=== PATIENT | male | born 1975 | race Caucasian/White ===

== ENCOUNTER 2017-09-11 18:05 | Inpatient (IN) | payer MEDICARE, MEDICAID ==
[~2017-09-11] VITALS: Ht 185.4 cm; Wt 96.3 kg
[2017-09-11] MEDS ORDERED: QUET400T PO (18:35)
[2017-09-11] MEDS ORDERED: LISI-662 PO (18:36)
[2017-09-11] MEDS ORDERED: OLAN10TA3 PO (18:37)
[2017-09-11] MEDS ORDERED: QUET300T2 PO (18:39)
[2017-09-11 18:54] LABS: BASOPHILS % (AUTO) 0.6 % (0.0-2.0); EOSINOPHILS % (AUTO) 2.4 % (1.0-6.0); HEMATOCRIT 36.8 % (41-53); HEMOGLOBIN 12.7 g/dL (13.5-17.5); LYMPHOCYTES # (AUTO) 2.1 K/uL (1.0-4.8); LYMPHOCYTES % (AUTO) 33.1 % (22.0-44.0); MEAN CORPUSCULAR HEMOGLOBIN 30.8 pg (26.0-34.0); MEAN CORPUSCULAR HGB CONC 34.5 G/dL (31.0-37.0); MEAN CORPUSCULAR VOLUME 89 fL (80-100); MONOCYTES # (AUTO) 0.6 K/uL (0.1-1.0); MONOCYTES % (AUTO) 9.2 % (2.0-9.0); NEUTROPHILS # (AUTO) 3.5 K/uL (1.8-7.7); NEUTROPHILS % (AUTO) 54.7 % (40.0-70.0); PLATELET COUNT (AUTO) 281 K/uL (150-450); RED BLOOD CELL COUNT(AUTO) 4.12 MIL/uL (4.50-5.90); RED CELL DISTRIBUTION WIDTH 13.5 % (11.5-14.5)
[2017-09-11 19:04] LABS: AMPHET/METH SCREEN,URINE NEGATIVE (NEGATIVE); BARBITURATE SCREEN, URINE NEGATIVE (NEGATIVE); BENZODIAZEPINES SCREEN,URINE NEGATIVE (NEGATIVE); CANNABINOID SCREEN,URINE POSITIVE (NEGATIVE); COCAINE SCREEN,URINE NEGATIVE (NEGATIVE); METHADONE SCREEN, URINE NEGATIVE (NEGATIVE); OPIATE SCREEN,URINE NEGATIVE (NEGATIVE); PHENCYCLIDINE SCREEN,URINE NEGATIVE (NEGATIVE)
[2017-09-11 19:04] LABS: ANION GAP 10 mmol/L (8-16); CALCIUM, TOTAL 8.9 mg/dL (8.8-10.5); CARBON DIOXIDE 28 mmol/L (22-29); CHLORIDE 108 mmol/L (98-107); CREATININE 0.93 mg/dL (0.60-1.30); GLOMERULAR FILTR. RATE CALC > 60 mL/min (>60); GLUCOSE,RANDOM 109 mg/dL (70-110); POTASSIUM 3.3 mmol/L (3.5-5.1); SODIUM SERUM 146 mmol/L (136-145); UREA NITROGEN, BLOOD 15 mg/dL (7-18)
[2017-09-11 19:11] LABS: ALANINE AMINOTRANSFERASE 40 U/L (12-78); ALBUMIN 3.3 g/dL (3.4-5.0); ALKALINE PHOSPHATASE 108 U/L (46-116); ASPARTATE AMINOTRANSFERASE 33 U/L (15-37); BILIRUBIN,TOTAL 0.3 mg/dL (0.1-1.0); TOTAL PROTEIN, SERUM 6.9 g/dL (6.4-8.2)
[2017-09-11] MEDS ORDERED: QUEtiapine FUMARATE 100 MG TABLET PO ONE (20:45)
[2017-09-11] MEDS ORDERED: LORazepam 2 MG TABLET PO ONE (20:45)
[2017-09-11] MEDS ORDERED: LORazepam 2 MG TABLET PO PRN (21:00)
[2017-09-11] MEDS ORDERED: QUEtiapine FUMARATE 100 MG TABLET PO PRN (21:00)
[2017-09-11] MEDS ORDERED: ZOLPIDEM TARTRATE 10 MG TABLET PO PRN (21:00)
[2017-09-11 21:38] LABS: APPEARANCE,URINE CLOUDY (CLEAR); BILIRUBIN,URINE NEGATIVE (NEGATIVE); GLUCOSE, URINE (UA) NEGATIVE (NEGATIVE); KETONES,URINE NEGATIVE (NEGATIVE); LEUKOCYTE ESTERASE ,URINE NEGATIVE (NEGATIVE); NITRATE,URINE NEGATIVE (NEGATIVE); OCCULT BLOOD,URINE NEGATIVE (NEGATIVE); PH,URINE 7.5 (5.0-8.0); PROTEIN,URINE NEGATIVE (NEGATIVE)
[2017-09-11 21:45] VITALS: BP 151/104
[2017-09-11 21:48] LABS: AMORPHOUS SEDIMENT,UR Many /LPF (None Seen); BACTERIA,URINE Few /HPF (None Seen); RBC,URINE 0-2 /HPF (0-2); SQUAMOUS EPITHELIAL CELL,UR Rare /LPF (None Seen); WBC,URINE 0-2 /HPF (0-5)
[2017-09-11 21:50] LABS: CALCIUM OXALATE CRYSTALS,UR Rare /LPF (None Seen)
[2017-09-11] MEDS ORDERED: CloNIDine HCL 0.1 MG TABLET PO PRN (22:45)
[2017-09-11] MEDS ORDERED: POTASSIUM CHLORIDE 20 MEQ ER TABLET PO ONE (22:45)
[2017-09-12] MEDS ORDERED: PNEUMOCOCCAL VACCINE POLYVALENT 0.5 ML VIAL [PPSV23] IM ONE (00:15)
[2017-09-12] MEDS ORDERED: INFLUENZA VIRUS VACCINE QVS 2017-18 (3YR+)/PF 60 MCG/0.5 ML SYRINGE IM ONE (00:15)
[2017-09-12 05:47] VITALS: BP 134/93
[2017-09-12 08:33] VITALS: BP 111/60
[2017-09-12] MEDS: LISINOPRIL 20 MG TABLET PO SCH (09:10)
[2017-09-12] MEDS: BACITRACIN 28.4 GM OINTMENT TP SCH ×2 (09:10→16:20)
[2017-09-12] MEDS: NICOTINE 21 MG/24 HOUR PATCH TD SCH (09:10)
[2017-09-12] MEDS: FLUoxetine HCL 20 MG CAPSULE PO SCH (10:25)
[2017-09-12 19:10] VITALS: BP 118/68
[2017-09-13 00:32] VITALS: BP 138/79
[2017-09-13 08:32] VITALS: BP 119/65
[2017-09-13] MEDS: FLUoxetine HCL 20 MG CAPSULE PO SCH (08:43)
[2017-09-13] MEDS: LISINOPRIL 20 MG TABLET PO SCH (08:43)
[2017-09-13] MEDS: NICOTINE 21 MG/24 HOUR PATCH TD SCH (08:44)
[2017-09-13] MEDS: BACITRACIN 28.4 GM OINTMENT TP SCH ×2 (08:47→16:37)
[2017-09-13 16:13] VITALS: BP 118/69
[2017-09-13] MEDS: QUEtiapine FUMARATE 100 MG TABLET PO SCH (18:57)
[2017-09-14 00:47] VITALS: BP 110/68
[2017-09-14 08:04] LABS: ANION GAP 10 mmol/L (8-16); CALCIUM, TOTAL 8.9 mg/dL (8.8-10.5); CARBON DIOXIDE 25 mmol/L (22-29); CHLORIDE 103 mmol/L (98-107); CREATININE 0.86 mg/dL (0.60-1.30); GLOMERULAR FILTR. RATE CALC > 60 mL/min (>60); GLUCOSE,RANDOM 84 mg/dL (70-110); POTASSIUM 3.9 mmol/L (3.5-5.1); SODIUM SERUM 138 mmol/L (136-145); UREA NITROGEN, BLOOD 25 mg/dL (7-18)
[2017-09-14 08:40] VITALS: BP 109/69
[2017-09-14 08:45] VITALS: BP 116/81
[2017-09-14] MEDS: FLUoxetine HCL 20 MG CAPSULE PO SCH (08:45)
[2017-09-14] MEDS: QUEtiapine FUMARATE 100 MG TABLET PO SCH ×2 (08:45→16:42)
[2017-09-14] MEDS: NICOTINE 21 MG/24 HOUR PATCH TD SCH (08:45)
[2017-09-14] MEDS: LISINOPRIL 20 MG TABLET PO SCH (08:45)
[2017-09-14] MEDS: BACITRACIN 28.4 GM OINTMENT TP SCH ×2 (08:46→16:42)
[2017-09-14] MEDS: BuPROPion HCL 100 MG SR TABLET PO SCH (09:33)
[2017-09-14 16:14] VITALS: BP 112/64
[2017-09-15 00:57] VITALS: BP 100/77
[2017-09-15] MEDS ORDERED: LOPERAMIDE HCL 2 MG CAPSULE PO PRN (02:45)
[2017-09-15 08:51] VITALS: BP 105/75
[2017-09-15 09:00] VITALS: BP 118/74
[2017-09-15] MEDS: QUEtiapine FUMARATE 100 MG TABLET PO SCH ×2 (09:00→16:13)
[2017-09-15] MEDS: LISINOPRIL 20 MG TABLET PO SCH (09:00)
[2017-09-15] MEDS: FLUoxetine HCL 20 MG CAPSULE PO SCH (09:00)
[2017-09-15] MEDS: NICOTINE 21 MG/24 HOUR PATCH TD SCH (09:01)
[2017-09-15] MEDS: BACITRACIN 28.4 GM OINTMENT TP SCH ×2 (09:01→16:15)
[2017-09-15] MEDS: BuPROPion HCL 100 MG SR TABLET PO SCH (09:01)
[2017-09-15] MEDS ORDERED: ONDANSETRON HCL 4 MG TABLET PO PRN (09:15)
[2017-09-15 16:34] VITALS: BP 107/67
[2017-09-16 06:07] VITALS: BP 103/63
[2017-09-16 08:11] LABS: BASOPHILS % (AUTO) 0.3 % (0.0-2.0); EOSINOPHILS % (AUTO) 1.9 % (1.0-6.0); HEMATOCRIT 40.4 % (41-53); HEMOGLOBIN 13.9 g/dL (13.5-17.5); LYMPHOCYTES # (AUTO) 2.6 K/uL (1.0-4.8); LYMPHOCYTES % (AUTO) 32.4 % (22.0-44.0); MEAN CORPUSCULAR HGB CONC 34.4 G/dL (31.0-37.0); MEAN CORPUSCULAR VOLUME 90 fL (80-100); MONOCYTES # (AUTO) 0.7 K/uL (0.1-1.0); MONOCYTES % (AUTO) 8.6 % (2.0-9.0); NEUTROPHILS # (AUTO) 4.5 K/uL (1.8-7.7); NEUTROPHILS % (AUTO) 56.8 % (40.0-70.0); PLATELET COUNT (AUTO) 328 K/uL (150-450); RED BLOOD CELL COUNT(AUTO) 4.48 MIL/uL (4.50-5.90); RED CELL DISTRIBUTION WIDTH 13.9 % (11.5-14.5)
[2017-09-16] MEDS: BuPROPion HCL 100 MG SR TABLET PO SCH (08:24)
[2017-09-16] MEDS: LISINOPRIL 20 MG TABLET PO SCH (08:25)
[2017-09-16] MEDS: FLUoxetine HCL 20 MG CAPSULE PO SCH (08:25)
[2017-09-16] MEDS: NICOTINE 21 MG/24 HOUR PATCH TD SCH (08:25)
[2017-09-16] MEDS: QUEtiapine FUMARATE 100 MG TABLET PO SCH ×2 (08:25→16:11)
[2017-09-16] MEDS: BACITRACIN 28.4 GM OINTMENT TP SCH ×2 (08:27→16:11)
[2017-09-16 08:28] VITALS: BP 110/60
[2017-09-16 08:39] LABS: ALANINE AMINOTRANSFERASE 29 U/L (12-78); ALBUMIN 3.4 g/dL (3.4-5.0); ALKALINE PHOSPHATASE 104 U/L (46-116); ANION GAP 7 mmol/L (8-16); ASPARTATE AMINOTRANSFERASE 14 U/L (15-37); BILIRUBIN,TOTAL 0.3 mg/dL (0.1-1.0); CALCIUM, TOTAL 8.8 mg/dL (8.8-10.5); CARBON DIOXIDE 28 mmol/L (22-29); CHLORIDE 106 mmol/L (98-107); CREATININE 0.89 mg/dL (0.60-1.30); GLOMERULAR FILTR. RATE CALC > 60 mL/min (>60); GLUCOSE,RANDOM 89 mg/dL (70-110); SODIUM SERUM 141 mmol/L (136-145); TOTAL PROTEIN, SERUM 7.2 g/dL (6.4-8.2); UREA NITROGEN, BLOOD 33 mg/dL (7-18)
[2017-09-16 17:06] VITALS: BP 120/65
[2017-09-17 06:13] VITALS: BP 117/82
[2017-09-17 08:21] VITALS: BP 119/78
[2017-09-17] MEDS: NICOTINE 21 MG/24 HOUR PATCH TD SCH (08:30)
[2017-09-17] MEDS: LISINOPRIL 20 MG TABLET PO SCH (08:30)
[2017-09-17] MEDS: BuPROPion HCL 100 MG SR TABLET PO SCH (08:31)
[2017-09-17] MEDS: QUEtiapine FUMARATE 100 MG TABLET PO SCH ×2 (08:31→16:20)
[2017-09-17] MEDS: FLUoxetine HCL 20 MG CAPSULE PO SCH (08:31)
[2017-09-17] MEDS: BACITRACIN 28.4 GM OINTMENT TP SCH ×2 (08:34→16:20)
[2017-09-17 16:10] VITALS: BP 117/71
[2017-09-18] VITALS: BP 117/61
[2017-09-18 08:38] VITALS: BP 123/73
[2017-09-18] MEDS: FLUoxetine HCL 20 MG CAPSULE PO SCH (09:39)
[2017-09-18] MEDS: BuPROPion HCL 100 MG SR TABLET PO SCH (09:39)
[2017-09-18] MEDS: LISINOPRIL 20 MG TABLET PO SCH (09:39)
[2017-09-18] MEDS: QUEtiapine FUMARATE 100 MG TABLET PO SCH ×2 (09:40→17:10)
[2017-09-18] MEDS: NICOTINE 21 MG/24 HOUR PATCH TD SCH (09:41)
[2017-09-18] MEDS: BACITRACIN 28.4 GM OINTMENT TP SCH ×2 (09:42→17:11)
[2017-09-18 16:22] VITALS: BP 122/77
[2017-09-19 00:10] VITALS: BP 110/62
[2017-09-19 08:36] VITALS: BP 121/60
[2017-09-19] MEDS: BuPROPion HCL 100 MG SR TABLET PO SCH (08:41)
[2017-09-19] MEDS: FLUoxetine HCL 20 MG CAPSULE PO SCH (08:41)
[2017-09-19] MEDS: QUEtiapine FUMARATE 100 MG TABLET PO SCH ×2 (08:41→16:11)
[2017-09-19] MEDS: NICOTINE 21 MG/24 HOUR PATCH TD SCH (08:41)
[2017-09-19] MEDS: LISINOPRIL 20 MG TABLET PO SCH (08:41)
[2017-09-19] MEDS: BACITRACIN 28.4 GM OINTMENT TP SCH ×2 (08:45→16:12)
[2017-09-19 16:10] VITALS: BP 106/66
[2017-09-20 01:25] VITALS: BP 102/61
[2017-09-20 08:00] VITALS: BP 118/76
[2017-09-20] MEDS: FLUoxetine HCL 20 MG CAPSULE PO SCH (08:24)
[2017-09-20] MEDS: LISINOPRIL 20 MG TABLET PO SCH (08:24)
[2017-09-20] MEDS: QUEtiapine FUMARATE 100 MG TABLET PO SCH (08:24)
[2017-09-20] MEDS: BuPROPion HCL 100 MG SR TABLET PO SCH (08:24)
[2017-09-20] MEDS: NICOTINE 21 MG/24 HOUR PATCH TD SCH (08:25)
[2017-09-20] MEDS: BACITRACIN 28.4 GM OINTMENT TP SCH ×2 (08:26→16:30)
[2017-09-20 16:24] VITALS: BP 119/60
[2017-09-20] MEDS: QUEtiapine FUMARATE 200 MG TABLET PO SCH (16:30)
[2017-09-21 02:34] VITALS: BP 102/65
[2017-09-21 08:00] VITALS: BP 123/71
[2017-09-21] MEDS: FLUoxetine HCL 20 MG CAPSULE PO SCH (09:32)
[2017-09-21] MEDS: LISINOPRIL 20 MG TABLET PO SCH (09:33)
[2017-09-21] MEDS: QUEtiapine FUMARATE 200 MG TABLET PO SCH ×2 (09:33→16:21)
[2017-09-21] MEDS: BuPROPion HCL 100 MG SR TABLET PO SCH (09:38)
[2017-09-21] MEDS: NICOTINE 21 MG/24 HOUR PATCH TD SCH (09:38)
[2017-09-21] MEDS: BACITRACIN 28.4 GM OINTMENT TP SCH ×2 (09:40→16:21)
[2017-09-21] MEDS ORDERED: FLUO-191 PO (13:27)
[2017-09-21] MEDS ORDERED: BUPR100SR PO (13:28)
[2017-09-21 16:02] VITALS: BP 106/60
[2017-09-22 01:30] VITALS: BP 109/60
[2017-09-22] MEDS ORDERED: QUET200T PO (04:55)
[2017-09-22] MEDS ORDERED: FLUO40CA7 PO (05:43)
[2017-09-22] MEDS ORDERED: BUPR100SR PO (05:43)
[2017-09-22] MEDS ORDERED: QUET200T29 PO (05:43)
[2017-09-22 08:20] VITALS: BP 124/71
[2017-09-22 08:21] VITALS: BP 109/64
[2017-09-22] MEDS: QUEtiapine FUMARATE 200 MG TABLET PO SCH (08:24)
[2017-09-22] MEDS: FLUoxetine HCL 20 MG CAPSULE PO SCH (08:24)
[2017-09-22] MEDS: BuPROPion HCL 100 MG SR TABLET PO SCH (08:24)
[2017-09-22] MEDS: LISINOPRIL 20 MG TABLET PO SCH (08:24)
[2017-09-22] MEDS: NICOTINE 21 MG/24 HOUR PATCH TD SCH (08:25)
[2017-09-22] MEDS: BACITRACIN 28.4 GM OINTMENT TP SCH (08:25)
== END 2017-09-22 11:28 | disposition home or self-care (01) | DRG 885 ==
LOC: EMS 18:06 → B2S 21:00 → B2X 09-12 18:43
PROVIDERS: ADMIT Psychiatry & Neurology Child & Adolescent Psychiatry; ATTEND Psychiatry & Neurology Child & Adolescent Psychiatry
DX: F33.3 Major depressive disorder, recurrent, severe with psychotic symptoms (principal); R45.851 Suicidal ideations; D64.9 Anemia, unspecified; E87.6 Hypokalemia; F12.90 Cannabis use, unspecified, uncomplicated; F17.210 Nicotine dependence, cigarettes, uncomplicated; Z28.21 Immunization not carried out because of patient refusal; Z88.8 Allergy status to other drugs, medicaments and biological substances; Z59.0 Homelessness; I10 Essential (primary) hypertension; F15.90 Other stimulant use, unspecified, uncomplicated; F41.9 Anxiety disorder, unspecified; W45.8XXA Other foreign body or object entering through skin, initial encounter; Y93.89 Activity, other specified; Y92.89 Other specified places as the place of occurrence of the external cause; Y99.8 Other external cause status
CPT/HCPCS: 99285; G0480

== ENCOUNTER 2018-01-06 10:05 | Inpatient (IN) | payer MEDICARE, MEDICAID ==
[~2018-01-06] VITALS: Ht 185.4 cm; Wt 107.0 kg
[~2018-01-06 10:05] MED LIST: BUPR100SR PO; FLUO-191 PO; FLUO40CA7 PO; LISI-662 PO; QUET200T PO; QUET200T29 PO
[2018-01-06 11:27] LABS: BASOPHILS % (AUTO) 0.2 % (0.0-2.0); EOSINOPHILS % (AUTO) 0.3 % (1.0-6.0); HEMATOCRIT 41.1 % (41-53); LYMPHOCYTES # (AUTO) 4.3 K/uL (1.0-4.8); LYMPHOCYTES % (AUTO) 25.3 % (22.0-44.0); MEAN CORPUSCULAR HEMOGLOBIN 30.4 pg (26.0-34.0); MEAN CORPUSCULAR VOLUME 89 fL (80-100); MONOCYTES # (AUTO) 1.4 K/uL (0.1-1.0); MONOCYTES % (AUTO) 8.5 % (2.0-9.0); NEUTROPHILS # (AUTO) 11.2 K/uL (1.8-7.7); NEUTROPHILS % (AUTO) 65.7 % (40.0-70.0); PLATELET COUNT (AUTO) 455 K/uL (150-450); RED BLOOD CELL COUNT(AUTO) 4.61 MIL/uL (4.50-5.90); RED CELL DISTRIBUTION WIDTH 14.7 % (11.5-14.5)
[2018-01-06 11:36] LABS: ALBUMIN 4.5 g/dL (3.4-5.0); BILIRUBIN,TOTAL 0.4 mg/dL (0.1-1.0); CALCIUM, TOTAL 9.2 mg/dL (8.8-10.5); CREATININE 1.7 mg/dL (0.60-1.30); POTASSIUM 4.2 mmol/L (3.5-5.1); TOTAL PROTEIN, SERUM 8.3 g/dL (6.4-8.2)
[2018-01-06] MEDS ORDERED: LIDOCAINE HCL 1% 10 ML VIAL INJ ONE (11:45)
[2018-01-06] MEDS ORDERED: LIDOCAINE HCL/PF 1% 5 ML VIAL ONE (11:55)
[2018-01-06] MEDS ORDERED: DiphenhydrAMINE HCL 25 MG CAPSULE PO ONE (12:30)
[2018-01-06] MEDS ORDERED: LORazepam 2 MG/ML VIAL IM ONE (12:30)
[2018-01-06] MEDS ORDERED: LORazepam 2 MG TABLET PO ONE (12:30)
[2018-01-06] MEDS ORDERED: DiphenhydrAMINE HCL 50 MG/ML VIAL IM ONE (12:30)
[2018-01-06] MEDS ORDERED: QUEtiapine FUMARATE 100 MG TABLET PO ONE (12:30)
[2018-01-06 12:53] LABS: AMPHET/METH SCREEN,URINE POSITIVE (NEGATIVE); BARBITURATE SCREEN, URINE NEGATIVE (NEGATIVE); BENZODIAZEPINES SCREEN,URINE NEGATIVE (NEGATIVE); CANNABINOID SCREEN,URINE NEGATIVE (NEGATIVE); COCAINE SCREEN,URINE NEGATIVE (NEGATIVE); METHADONE SCREEN, URINE NEGATIVE (NEGATIVE); OPIATE SCREEN,URINE NEGATIVE (NEGATIVE)
[2018-01-06 12:57] LABS: PHENCYCLIDINE SCREEN,URINE NEGATIVE (NEGATIVE)
[2018-01-06] MEDS ORDERED: OLANZapine 5 MG RAPDIS TABLET PO PRN (14:00)
[2018-01-06] MEDS ORDERED: ZOLPIDEM TARTRATE 10 MG TABLET PO PRN (14:00)
[2018-01-06] MEDS ORDERED: HYDROCODONE/ACETAMINOPHEN 5-325 MG TABLET PO ONE (20:15)
[2018-01-07] VITALS (9 sets, daily range): BP systolic 106–157; BP diastolic 60–95
[2018-01-07 05:43] LABS: CHOL/HDL RATIO 6.6 (4.2-7.3); CHOLESTEROL 205 mg/dL (131-200); HDL CHOLESTEROL 31 mg/dL (40-60); TRIGLYCERIDES 409 mg/dL (15-150)
[2018-01-07] MEDS ORDERED: LORazepam 2 MG TABLET PO PRN (10:45)
[2018-01-07] MEDS ORDERED: ACETAMINOPHEN 325 MG TABLET PO PRN (11:15)
[2018-01-07] MEDS ORDERED: ONDANSETRON HCL 4 MG TABLET PO PRN (11:15)
[2018-01-07] MEDS ORDERED: IBUPROFEN 400 MG TABLET PO PRN (11:15)
[2018-01-07] MEDS ORDERED: PETROLATUM,WHITE 71 GM JELLY TP PRN (11:15)
[2018-01-07] MEDS ORDERED: MAGNESIUM HYDROXIDE SUSPENSION 30 ML UDCUP PO PRN (11:15)
[2018-01-07] MEDS ORDERED: LOPERAMIDE HCL 2 MG CAPSULE PO PRN (11:15)
[2018-01-07] MEDS ORDERED: ALBUTEROL SULFATE HFA 90 MCG/PUFF 8 GM INHALER IH PRN (11:15)
[2018-01-07] MEDS ORDERED: DOCUSATE SODIUM 100 MG CAPSULE PO PRN (11:15)
[2018-01-07] MEDS ORDERED: CloNIDine HCL 0.1 MG TABLET PO PRN (11:15)
[2018-01-07] MEDS ORDERED: MAG HYDROX/AL HYDROX/SIMETH ES 30 ML SUSPENSION UDCUP PO PRN (11:15)
[2018-01-07] MEDS ORDERED: PNEUMOCOCCAL VACCINE POLYVALENT 0.5 ML VIAL [PPSV23] IM ONE (11:45)
[2018-01-07] MEDS: LORazepam 2 MG TABLET PO PRN ×2 (13:08→18:00)
[2018-01-07] MEDS: QUEtiapine FUMARATE 200 MG TABLET PO SCH (16:36)
[2018-01-07] MEDS: SIMVASTATIN 10 MG TABLET PO SCH (20:33)
[2018-01-08 01:02] VITALS: BP 110/65
[2018-01-08] MEDS: LORazepam 2 MG TABLET PO PRN (01:11)
[2018-01-08 05:00] VITALS: BP 133/88
[2018-01-08] MEDS ORDERED: LORazepam 2 MG TABLET PO PRN (07:00)
[2018-01-08 08:15] VITALS: BP 110/68
[2018-01-08] MEDS: AmLODIPine BESYLATE 5 MG TABLET PO SCH (08:17)
[2018-01-08] MEDS: LORazepam 2 MG TABLET PO SCH ×4 (08:17→20:50)
[2018-01-08] MEDS: BuPROPion HCL XL 150 MG ER TABLET PO SCH (08:17)
[2018-01-08] MEDS: FLUoxetine HCL 20 MG CAPSULE PO SCH (08:17)
[2018-01-08] MEDS: QUEtiapine FUMARATE 200 MG TABLET PO SCH ×2 (08:17→16:36)
[2018-01-08] MEDS: BACITRACIN 28.4 GM OINTMENT TP SCH ×2 (08:18→16:36)
[2018-01-08 08:25] LABS: HEMOGLOBIN A1C 5.1 % (4.5-6.2)
[2018-01-08 08:49] LABS: CHOL/HDL RATIO 6.9 (4.2-7.3); THYROID STIMULATING HORMONE 1.78 uIU/mL (0.36-3.74)
[2018-01-08 09:00] VITALS: BP 118/65
[2018-01-08 13:00] VITALS: BP 110/66
[2018-01-08 16:03] VITALS: BP 138/62
[2018-01-08] MEDS: SIMVASTATIN 10 MG TABLET PO SCH (20:49)
[2018-01-09 03:08] VITALS: BP 125/68
[2018-01-09 03:10] VITALS: BP 125/68
[2018-01-09 08:22] LABS: APPEARANCE,URINE CLEAR (CLEAR); BILIRUBIN,URINE NEGATIVE (NEGATIVE); GLUCOSE, URINE (UA) NEGATIVE (NEGATIVE); KETONES,URINE NEGATIVE (NEGATIVE); LEUKOCYTE ESTERASE ,URINE NEGATIVE (NEGATIVE); NITRATE,URINE NEGATIVE (NEGATIVE); OCCULT BLOOD,URINE NEGATIVE (NEGATIVE); PH,URINE 5.5 (5.0-8.0); PROTEIN,URINE NEGATIVE (NEGATIVE); UROBILINOGEN,URINE 0.2 mg/dL (<=1.0)
[2018-01-09 08:27] LABS: AMPHET/METH SCREEN,URINE NEGATIVE (NEGATIVE); BARBITURATE SCREEN, URINE NEGATIVE (NEGATIVE); BENZODIAZEPINES SCREEN,URINE NEGATIVE (NEGATIVE); CANNABINOID SCREEN,URINE NEGATIVE (NEGATIVE); COCAINE SCREEN,URINE NEGATIVE (NEGATIVE); METHADONE SCREEN, URINE NEGATIVE (NEGATIVE); OPIATE SCREEN,URINE NEGATIVE (NEGATIVE)
[2018-01-09 08:29] LABS: PHENCYCLIDINE SCREEN,URINE NEGATIVE (NEGATIVE)
[2018-01-09 08:36] VITALS: BP 111/60
[2018-01-09] MEDS: LORazepam 2 MG TABLET PO SCH ×4 (08:54→20:34)
[2018-01-09] MEDS: QUEtiapine FUMARATE 200 MG TABLET PO SCH ×2 (08:54→16:36)
[2018-01-09] MEDS: BuPROPion HCL XL 150 MG ER TABLET PO SCH (08:54)
[2018-01-09] MEDS: FLUoxetine HCL 20 MG CAPSULE PO SCH (08:54)
[2018-01-09] MEDS: AmLODIPine BESYLATE 5 MG TABLET PO SCH (08:54)
[2018-01-09] MEDS: BACITRACIN 28.4 GM OINTMENT TP SCH ×2 (08:56→16:36)
[2018-01-09 12:00] VITALS: BP 105/63
[2018-01-09 16:10] VITALS: BP 113/65
[2018-01-09] MEDS: SIMVASTATIN 20 MG TABLET PO SCH (20:34)
[2018-01-10 05:20] VITALS: BP 136/86
[2018-01-10] MEDS ORDERED: LORazepam 1 MG TABLET PO PRN (07:00)
[2018-01-10 08:00] VITALS: BP 136/78
[2018-01-10 08:18] VITALS: BP 136/78
[2018-01-10] MEDS: AmLODIPine BESYLATE 5 MG TABLET PO SCH (08:36)
[2018-01-10] MEDS: BuPROPion HCL XL 150 MG ER TABLET PO SCH (08:36)
[2018-01-10] MEDS: LORazepam 1 MG TABLET PO SCH ×4 (08:36→20:09)
[2018-01-10] MEDS: QUEtiapine FUMARATE 200 MG TABLET PO SCH ×2 (08:36→16:28)
[2018-01-10] MEDS: FLUoxetine HCL 20 MG CAPSULE PO SCH (08:36)
[2018-01-10] MEDS: BACITRACIN 28.4 GM OINTMENT TP SCH ×2 (10:12→17:18)
[2018-01-10 16:18] VITALS: BP 138/72
[2018-01-10] MEDS: CEPHALEXIN MONOHYDRATE 500 MG CAPSULE PO SCH (16:28)
[2018-01-10] MEDS: SULFAMETHOX/TRIMETH DS 800-160 MG/TABLET PO SCH (16:28)
[2018-01-10 16:49] VITALS: BP 138/72
[2018-01-10] MEDS: SIMVASTATIN 20 MG TABLET PO SCH (20:09)
[2018-01-11] VITALS: BP 139/87
[2018-01-11] MEDS: CEPHALEXIN MONOHYDRATE 500 MG CAPSULE PO SCH ×3 (00:21→16:28)
[2018-01-11] MEDS ORDERED: LORazepam 1 MG TABLET PO PRN (07:00)
[2018-01-11 08:00] VITALS: BP 136/67
[2018-01-11] MEDS: SULFAMETHOX/TRIMETH DS 800-160 MG/TABLET PO SCH ×2 (08:30→16:28)
[2018-01-11] MEDS: AmLODIPine BESYLATE 5 MG TABLET PO SCH (08:30)
[2018-01-11] MEDS: QUEtiapine FUMARATE 200 MG TABLET PO SCH ×2 (08:30→16:28)
[2018-01-11] MEDS: BuPROPion HCL XL 150 MG ER TABLET PO SCH (08:30)
[2018-01-11] MEDS: FLUoxetine HCL 20 MG CAPSULE PO SCH (08:31)
[2018-01-11] MEDS: BACITRACIN 28.4 GM OINTMENT TP SCH ×2 (08:32→16:29)
[2018-01-11] MEDS: NICOTINE 14 MG/24 HOUR PATCH TD PRN (10:05)
[2018-01-11 16:09] VITALS: BP 122/68
[2018-01-11 16:10] VITALS: BP 122/68
[2018-01-11] MEDS: SIMVASTATIN 20 MG TABLET PO SCH (20:42)
[2018-01-12] MEDS: CEPHALEXIN MONOHYDRATE 500 MG CAPSULE PO SCH ×3 (00:06→16:30)
[2018-01-12 06:30] VITALS: BP 118/72
[2018-01-12 08:28] VITALS: BP 101/60
[2018-01-12] MEDS: BuPROPion HCL XL 150 MG ER TABLET PO SCH (08:35)
[2018-01-12] MEDS: QUEtiapine FUMARATE 200 MG TABLET PO SCH ×2 (08:35→16:31)
[2018-01-12] MEDS: AmLODIPine BESYLATE 5 MG TABLET PO SCH ×2 (08:35→08:53)
[2018-01-12] MEDS: SULFAMETHOX/TRIMETH DS 800-160 MG/TABLET PO SCH ×2 (08:36→16:31)
[2018-01-12] MEDS: FLUoxetine HCL 20 MG CAPSULE PO SCH (08:36)
[2018-01-12] MEDS: BACITRACIN 28.4 GM OINTMENT TP SCH ×2 (08:37→16:31)
[2018-01-12 08:57] LABS: BASOPHILS % (AUTO) 0.8 % (0.0-2.0); EOSINOPHILS % (AUTO) 3.7 % (1.0-6.0); HEMATOCRIT 40.1 % (41-53); HEMOGLOBIN 13.9 g/dL (13.5-17.5); LYMPHOCYTES # (AUTO) 2.6 K/uL (1.0-4.8); LYMPHOCYTES % (AUTO) 29.9 % (22.0-44.0); MEAN CORPUSCULAR HEMOGLOBIN 30.8 pg (26.0-34.0); MEAN CORPUSCULAR HGB CONC 34.7 G/dL (31.0-37.0); MEAN CORPUSCULAR VOLUME 89 fL (80-100); MONOCYTES # (AUTO) 0.7 K/uL (0.1-1.0); MONOCYTES % (AUTO) 8.4 % (2.0-9.0); NEUTROPHILS % (AUTO) 57.2 % (40.0-70.0); PLATELET COUNT (AUTO) 279 K/uL (150-450); RED BLOOD CELL COUNT(AUTO) 4.52 MIL/uL (4.50-5.90); RED CELL DISTRIBUTION WIDTH 14.7 % (11.5-14.5)
[2018-01-12 09:16] LABS: ANION GAP 8 mmol/L (8-16); CALCIUM, TOTAL 8.9 mg/dL (8.8-10.5); CARBON DIOXIDE 25 mmol/L (22-29); CHLORIDE 106 mmol/L (98-107); CREATININE 1.03 mg/dL (0.60-1.30); GLOMERULAR FILTR. RATE CALC > 60 mL/min (>60); GLUCOSE,RANDOM 83 mg/dL (70-110); POTASSIUM 3.9 mmol/L (3.5-5.1); SODIUM SERUM 139 mmol/L (136-145); UREA NITROGEN, BLOOD 25 mg/dL (7-18)
[2018-01-12 16:23] VITALS: BP 116/80
[2018-01-12] MEDS: BuPROPion HCL 150 MG SR TABLET PO SCH (16:30)
[2018-01-12] MEDS: SIMVASTATIN 20 MG TABLET PO SCH (20:39)
[2018-01-13] MEDS: CEPHALEXIN MONOHYDRATE 500 MG CAPSULE PO SCH ×2 (00:41→07:04)
[2018-01-13 06:36] VITALS: BP 90/60
[2018-01-13] MEDS: FLUoxetine HCL 20 MG CAPSULE PO SCH (08:11)
[2018-01-13] MEDS: BuPROPion HCL 150 MG SR TABLET PO SCH (08:12)
[2018-01-13] MEDS: AmLODIPine BESYLATE 5 MG TABLET PO SCH (08:12)
[2018-01-13] MEDS: SULFAMETHOX/TRIMETH DS 800-160 MG/TABLET PO SCH (08:12)
[2018-01-13] MEDS: QUEtiapine FUMARATE 200 MG TABLET PO SCH (08:12)
[2018-01-13] MEDS: BACITRACIN 28.4 GM OINTMENT TP SCH (08:17)
[2018-01-13] MEDS: NICOTINE 14 MG/24 HOUR PATCH TD PRN (08:17)
[2018-01-13 08:31] VITALS: BP 132/81
[2018-01-13] MEDS ORDERED: THIAMINE HCL 100 MG TABLET PO SCH (09:00)
[2018-01-13] MEDS ORDERED: OMEGA-3/DHA/EPA/FISH OIL 1,000 MG CAPSULE PO SCH (09:00)
[2018-01-13] MEDS ORDERED: FOLIC ACID 1 MG TABLET PO SCH (09:00)
[2018-01-13] MEDS ORDERED: MULTIVITAMINS WITH MINERALS, THERAPEUTIC TABLET PO SCH (09:00)
[2018-01-13] MEDS ORDERED: OMEG-135 PO (10:00)
[2018-01-13] MEDS ORDERED: SULF1TAB42 PO (10:00)
[2018-01-13] MEDS ORDERED: BUPR150SR PO (10:00)
[2018-01-13] MEDS ORDERED: SIMV-260 PO (10:00)
[2018-01-13] MEDS ORDERED: CEPH500 PO (10:00)
[2018-01-13] MEDS ORDERED: AMLO-511 PO (10:00)
== END 2018-01-13 13:35 | disposition home or self-care (01) | DRG 885 ==
LOC: EMS 10:06 → B2X 01-07 08:18
PROVIDERS: ADMIT Psychiatry & Neurology Psychiatry; ATTEND Psychiatry & Neurology Psychiatry
DX: F25.1 Schizoaffective disorder, depressive type (principal); F33.2 Major depressive disorder, recurrent severe without psychotic features; N17.9 Acute kidney failure, unspecified; N39.0 Urinary tract infection, site not specified; F17.200 Nicotine dependence, unspecified, uncomplicated; F15.10 Other stimulant abuse, uncomplicated; F12.90 Cannabis use, unspecified, uncomplicated; F10.20 Alcohol dependence, uncomplicated; D72.829 Elevated white blood cell count, unspecified; I12.9 Hypertensive chronic kidney disease with stage 1 through stage 4 chronic kidney disease, or unspecified chronic kidney disease; N18.9 Chronic kidney disease, unspecified; S61.419A Laceration without foreign body of unspecified hand, initial encounter; A49.01 Methicillin susceptible Staphylococcus aureus infection, unspecified site; R56.9 Unspecified convulsions; R45.87 Impulsiveness; Y28.1XXA Contact with knife, undetermined intent, initial encounter; S61.019A Laceration without foreign body of unspecified thumb without damage to nail, initial encounter; S71.119A Laceration without foreign body, unspecified thigh, initial encounter; Z59.0 Homelessness; Z79.899 Other long term (current) drug therapy; Z91.19 Patient's noncompliance with other medical treatment and regimen; Z91.5 Personal history of self-harm; Z91.83 Wandering in diseases classified elsewhere; Y93.89 Activity, other specified; Y92.89 Other specified places as the place of occurrence of the external cause; Y99.8 Other external cause status; Z71.6 Tobacco abuse counseling; Z71.51 Drug abuse counseling and surveillance of drug abuser
CPT/HCPCS: 12001; 80074; 80307; 83036; 84443; 87070; 87205; 96372; 99285; G0480; J1200; J2060; J3490

== ENCOUNTER 2021-03-18 17:32 | Inpatient (IN) | payer MEDICARE, MEDICAID ==
[~2021-03-18] VITALS: Ht 185.4 cm; Wt 110.7 kg
[~2021-03-18 17:32] MED LIST changes: +AMLO-257 PO; -BUPR100SR PO; +BUPR150SR PO; +CEPH500C3 PO; -FLUO-191 PO; -LISI-662 PO; +OMEG-135 PO; -QUET200T PO; -QUET200T29 PO; +QUET200T30 PO; +SIMV-260 PO; +SULF1TAB42 PO
[2021-03-18] MEDS ORDERED: FAMOTIDINE 20 MG TABLET PO ONE (21:15)
[2021-03-18] MEDS ORDERED: PB/HYOSCY/ATR/SCOP/LIDO/MAALOX 55 ML BOTTLE PO ONE (21:15)
[2021-03-18] MEDS ORDERED: DIAZEPAM 5 MG TABLET PO ONE (21:15)
[2021-03-18] MEDS ORDERED: PERTUSS(ACELL),DIPH,TET VAC/PF 0.5 ML SYRINGE IM. ONE (21:15)
[2021-03-18 21:36] LABS: EOSINOPHILS % (AUTO) 0.9 % (1.0-6.0); HEMATOCRIT 41.2 % (41-53); HEMOGLOBIN 14.2 g/dL (13.5-17.5); LYMPHOCYTES # (AUTO) 3.1 K/uL (1.0-4.8); MEAN CORPUSCULAR HEMOGLOBIN 30.4 pg (26.0-34.0); MEAN CORPUSCULAR HGB CONC 34.5 G/dL (31.0-37.0); MEAN CORPUSCULAR VOLUME 88 fL (80-100); MONOCYTES # (AUTO) 1.1 K/uL (0.1-1.0); MONOCYTES % (AUTO) 9.1 % (2.0-9.0); NEUTROPHILS # (AUTO) 7.6 K/uL (1.8-7.7); PLATELET COUNT (AUTO) 287 K/uL (150-450); RED BLOOD CELL COUNT(AUTO) 4.68 MIL/uL (4.50-5.90); RED CELL DISTRIBUTION WIDTH 13.8 % (11.5-14.5)
[2021-03-18 22:07] LABS: APPEARANCE,URINE CLEAR (CLEAR); BILIRUBIN,URINE NEGATIVE (NEGATIVE); GLUCOSE, URINE (UA) NEGATIVE (NEGATIVE); KETONES,URINE 40 mg/dL (NEGATIVE); LEUKOCYTE ESTERASE ,URINE NEGATIVE (NEGATIVE); NITRATE,URINE NEGATIVE (NEGATIVE); OCCULT BLOOD,URINE TRACE (NEGATIVE); PH,URINE 6.5 (5.0-8.0); PROTEIN,URINE NEGATIVE (NEGATIVE); UROBILINOGEN,URINE 0.2 mg/dL (<=1.0)
[2021-03-18 22:07] LABS: ANION GAP 14 mmol/L (8-16); CALCIUM, TOTAL 9.3 mg/dL (8.8-10.5); CARBON DIOXIDE 25 mmol/L (22-29); CHLORIDE 93 mmol/L (98-107); CREATININE 1.11 mg/dL (0.60-1.30); GLOMERULAR FILTR. RATE CALC > 60 mL/min (>60); GLUCOSE,RANDOM 111 mg/dL (70-110); POTASSIUM 3.5 mmol/L (3.5-5.1); SODIUM SERUM 132 mmol/L (136-145); UREA NITROGEN, BLOOD 27 mg/dL (7-18)
[2021-03-18 22:14] LABS: AMPHET/METH SCREEN,URINE POSITIVE (NEGATIVE); BARBITURATE SCREEN, URINE NEGATIVE (NEGATIVE); BENZODIAZEPINES SCREEN,URINE NEGATIVE (NEGATIVE); CANNABINOID SCREEN,URINE NEGATIVE (NEGATIVE); COCAINE SCREEN,URINE NEGATIVE (NEGATIVE); METHADONE SCREEN, URINE NEGATIVE (NEGATIVE); OPIATE SCREEN,URINE NEGATIVE (NEGATIVE)
[2021-03-18 22:15] LABS: ALANINE AMINOTRANSFERASE 213 U/L (12-78); ALBUMIN 3.8 g/dL (3.4-5.0); ALKALINE PHOSPHATASE 93 U/L (46-116); ASPARTATE AMINOTRANSFERASE 386 U/L (15-37); BILIRUBIN,TOTAL 1.2 mg/dL (0.1-1.0)
[2021-03-18 22:16] LABS: ACETAMINOPHEN < 2 mcg/mL (10-30)
[2021-03-18 22:17] LABS: COVID AG,FIA SOURCE NASOPHARYNGEAL
[2021-03-18 22:24] LABS: SALICYLATE < 2.8 mg/dL (2.8-20.0)
[2021-03-18 22:25] LABS: PHENCYCLIDINE SCREEN,URINE NEGATIVE (NEGATIVE)
[2021-03-18 22:42] LABS: RBC,URINE 0-2 /HPF (0-2); WBC,URINE 0-2 /HPF (0-5)
[2021-03-18 22:43] LABS: BACTERIA,URINE Rare /HPF (None Seen)
[2021-03-18] MEDS: ZOLPIDEM TARTRATE 10 MG TABLET PO PRN (23:45)
[2021-03-19 02:06] LABS: CHOL/HDL RATIO 6.6 (4.2-7.3); CHOLESTEROL 250 mg/dL (131-200); HDL CHOLESTEROL 38 mg/dL (40-60); TRIGLYCERIDES 509 mg/dL (15-150)
[2021-03-19 02:23] VITALS: BP 144/111
[2021-03-19] MEDS ORDERED: INFLUENZA VIRUS VACCINE QVS 2021-22 (6MO+)/PF 60 MCG/0.5 ML SYRINGE IM. ONE (04:30)
[2021-03-19 08:15] VITALS: BP 133/82
[2021-03-19] MEDS: LORazepam 2 MG TABLET PO PRN ×2 (12:18→17:59)
[2021-03-19] MEDS ORDERED: DOCUSATE SODIUM 100 MG CAPSULE PO PRN (14:15)
[2021-03-19] MEDS ORDERED: NICOTINE 14 MG/24 HOUR PATCH TD PRN (14:15)
[2021-03-19] MEDS ORDERED: PETROLATUM,WHITE 28 GM JELLY TP PRN (14:15)
[2021-03-19] MEDS ORDERED: ONDANSETRON HCL 4 MG TABLET PO PRN (14:15)
[2021-03-19] MEDS ORDERED: ACETAMINOPHEN 325 MG TABLET PO PRN (14:15)
[2021-03-19] MEDS ORDERED: IBUPROFEN 400 MG TABLET PO PRN (14:15)
[2021-03-19] MEDS ORDERED: LOPERAMIDE HCL 2 MG CAPSULE PO PRN (14:15)
[2021-03-19] MEDS ORDERED: GuaiFENesin/D-METHORPHAN [SUGAR-FREE] 200-20MG/10 ML SYRUP UDCUP PO PRN (14:15)
[2021-03-19] MEDS ORDERED: CloNIDine HCL 0.1 MG TABLET PO PRN (14:15)
[2021-03-19] MEDS ORDERED: MAGNESIUM HYDROXIDE SUSPENSION 30 ML UDCUP PO PRN (14:15)
[2021-03-19] MEDS ORDERED: MAG HYDROX/AL HYDROX/SIMETH ES 30 ML SUSPENSION UDCUP PO PRN (14:15)
[2021-03-19] MEDS ORDERED: ALBUTEROL SULFATE HFA 90 MCG/PUFF 8 GM INHALER IH PRN (14:15)
[2021-03-19] MEDS: SIMVASTATIN 20 MG TABLET PO SCH (21:03)
[2021-03-19] MEDS: QUEtiapine FUMARATE 200 MG TABLET PO SCH (21:03)
[2021-03-20 01:02] VITALS: BP 138/82
[2021-03-20 09:09] VITALS: BP 145/90
[2021-03-20] MEDS: AmLODIPine BESYLATE 5 MG TABLET PO SCH (09:27)
[2021-03-20] MEDS: SERTRALINE HCL 50 MG TABLET PO SCH (09:27)
[2021-03-20 17:39] VITALS: BP 139/77
[2021-03-20] MEDS: LORazepam 2 MG TABLET PO PRN (17:39)
[2021-03-20] MEDS: QUEtiapine FUMARATE 200 MG TABLET PO SCH (20:21)
[2021-03-20] MEDS: SIMVASTATIN 20 MG TABLET PO SCH (20:21)
[2021-03-21 03:45] VITALS: BP 148/97
[2021-03-21] MEDS: LORazepam 2 MG TABLET PO PRN ×2 (03:54→16:55)
[2021-03-21 08:08] VITALS: BP 138/82
[2021-03-21] MEDS: AmLODIPine BESYLATE 5 MG TABLET PO SCH (08:36)
[2021-03-21] MEDS: SERTRALINE HCL 50 MG TABLET PO SCH (08:36)
[2021-03-21 16:56] VITALS: BP 158/98
[2021-03-21] MEDS: SIMVASTATIN 20 MG TABLET PO SCH (20:17)
[2021-03-21] MEDS: QUEtiapine FUMARATE 200 MG TABLET PO SCH (20:17)
[2021-03-22] MEDS: AmLODIPine BESYLATE 5 MG TABLET PO SCH (08:05)
[2021-03-22] MEDS: SERTRALINE HCL 50 MG TABLET PO SCH (08:05)
[2021-03-22 09:45] VITALS: BP 154/93
[2021-03-22] MEDS: LORazepam 2 MG TABLET PO PRN (15:59)
[2021-03-22 16:00] VITALS: BP 145/88
[2021-03-22] MEDS: SIMVASTATIN 20 MG TABLET PO SCH (20:13)
[2021-03-22] MEDS: QUEtiapine FUMARATE 200 MG TABLET PO SCH (20:13)
[2021-03-23] MEDS: AmLODIPine BESYLATE 5 MG TABLET PO SCH (08:40)
[2021-03-23] MEDS: SERTRALINE HCL 50 MG TABLET PO SCH (08:40)
[2021-03-23 08:50] VITALS: BP 126/82
[2021-03-23] MEDS: LORazepam 2 MG TABLET PO PRN (16:01)
[2021-03-23 16:38] VITALS: BP 140/84
[2021-03-23] MEDS: QUEtiapine FUMARATE 100 MG TABLET PO PRN (20:58)
[2021-03-23] MEDS: SIMVASTATIN 20 MG TABLET PO SCH (20:59)
[2021-03-23] MEDS: ZOLPIDEM TARTRATE 10 MG TABLET PO PRN (21:00)
[2021-03-23] MEDS: QUEtiapine FUMARATE 200 MG TABLET PO SCH (21:00)
[2021-03-24 08:30] VITALS: BP 104/61
[2021-03-24] MEDS: SERTRALINE HCL 50 MG TABLET PO SCH (08:32)
[2021-03-24] MEDS: AmLODIPine BESYLATE 5 MG TABLET PO SCH (08:32)
[2021-03-24] MEDS: LORazepam 2 MG TABLET PO PRN (09:01)
[2021-03-24] MEDS ORDERED: SERTRALINE HCL 50 MG TABLET PO ONE (09:15)
[2021-03-24] MEDS: QUEtiapine FUMARATE 100 MG TABLET PO PRN (12:07)
[2021-03-24 13:31] LABS: COVID AG,FIA SOURCE NASOPHARYNGEAL
[2021-03-24 16:00] VITALS: BP 114/68
[2021-03-24] MEDS: QUEtiapine FUMARATE 200 MG TABLET PO SCH (20:12)
[2021-03-24] MEDS: SIMVASTATIN 20 MG TABLET PO SCH (20:12)
[2021-03-25] MEDS: AmLODIPine BESYLATE 5 MG TABLET PO SCH (09:15)
[2021-03-25] MEDS: SERTRALINE HCL 100 MG TABLET PO SCH (09:16)
[2021-03-25 09:36] VITALS: BP 97/58
[2021-03-25] MEDS: LORazepam 2 MG TABLET PO PRN ×2 (12:16→17:52)
[2021-03-25 16:00] VITALS: BP 111/67
[2021-03-25] MEDS: QUEtiapine FUMARATE 200 MG TABLET PO SCH (20:27)
[2021-03-25] MEDS: SIMVASTATIN 20 MG TABLET PO SCH (20:27)
[2021-03-26 08:00] VITALS: BP 106/67
[2021-03-26] MEDS: AmLODIPine BESYLATE 5 MG TABLET PO SCH (09:35)
[2021-03-26] MEDS: SERTRALINE HCL 100 MG TABLET PO SCH (09:35)
[2021-03-26] MEDS: LORazepam 2 MG TABLET PO PRN (10:34)
[2021-03-26] MEDS: QUEtiapine FUMARATE 100 MG TABLET PO PRN (12:18)
[2021-03-26 16:50] VITALS: BP 110/67
[2021-03-26] MEDS: SIMVASTATIN 20 MG TABLET PO SCH (20:53)
[2021-03-26] MEDS: QUEtiapine FUMARATE 200 MG TABLET PO SCH (20:53)
[2021-03-27 08:00] VITALS: BP 132/96
[2021-03-27] MEDS: NALTREXONE HCL 50 MG TABLET PO SCH (09:00)
[2021-03-27] MEDS: AmLODIPine BESYLATE 5 MG TABLET PO SCH (09:00)
[2021-03-27] MEDS: SERTRALINE HCL 100 MG TABLET PO SCH (09:00)
[2021-03-27] MEDS: LORazepam 2 MG TABLET PO PRN (13:05)
[2021-03-27] MEDS: QUEtiapine FUMARATE 100 MG TABLET PO PRN (13:05)
[2021-03-27 16:07] VITALS: BP 122/70
[2021-03-27] MEDS: SIMVASTATIN 20 MG TABLET PO SCH (21:19)
[2021-03-27] MEDS: QUEtiapine FUMARATE 200 MG TABLET PO SCH (21:19)
[2021-03-28 07:21] LABS: BASOPHILS % (AUTO) 0.8 % (0.0-2.0); EOSINOPHILS % (AUTO) 2.3 % (1.0-6.0); HEMATOCRIT 41.6 % (41-53); HEMOGLOBIN 14.3 g/dL (13.5-17.5); LYMPHOCYTES # (AUTO) 3.1 K/uL (1.0-4.8); LYMPHOCYTES % (AUTO) 29.5 % (22.0-44.0); MEAN CORPUSCULAR HEMOGLOBIN 30.8 pg (26.0-34.0); MEAN CORPUSCULAR HGB CONC 34.4 G/dL (31.0-37.0); MEAN CORPUSCULAR VOLUME 90 fL (80-100); MONOCYTES # (AUTO) 0.7 K/uL (0.1-1.0); MONOCYTES % (AUTO) 6.7 % (2.0-9.0); NEUTROPHILS # (AUTO) 6.3 K/uL (1.8-7.7); NEUTROPHILS % (AUTO) 60.7 % (40.0-70.0); PLATELET COUNT (AUTO) 287 K/uL (150-450); RED BLOOD CELL COUNT(AUTO) 4.64 MIL/uL (4.50-5.90); RED CELL DISTRIBUTION WIDTH 13.8 % (11.5-14.5)
[2021-03-28 07:33] LABS: ALANINE AMINOTRANSFERASE 48 U/L (12-78); ALBUMIN 3.3 g/dL (3.4-5.0); ALKALINE PHOSPHATASE 72 U/L (46-116); ANION GAP 5 mmol/L (8-16); ASPARTATE AMINOTRANSFERASE 19 U/L (15-37); BILIRUBIN,TOTAL 0.3 mg/dL (0.1-1.0); CALCIUM, TOTAL 8.8 mg/dL (8.8-10.5); CARBON DIOXIDE 27 mmol/L (22-29); CHLORIDE 107 mmol/L (98-107); CREATININE 1.03 mg/dL (0.60-1.30); GLOMERULAR FILTR. RATE CALC > 60 mL/min (>60); GLUCOSE,RANDOM 92 mg/dL (70-110); POTASSIUM 4.4 mmol/L (3.5-5.1); SODIUM SERUM 139 mmol/L (136-145); TOTAL PROTEIN, SERUM 7.1 g/dL (6.4-8.2); UREA NITROGEN, BLOOD 23 mg/dL (7-18)
[2021-03-28 08:00] VITALS: BP 110/70
[2021-03-28] MEDS: AmLODIPine BESYLATE 5 MG TABLET PO SCH (08:49)
[2021-03-28] MEDS: NALTREXONE HCL 50 MG TABLET PO SCH (08:49)
[2021-03-28] MEDS: SERTRALINE HCL 100 MG TABLET PO SCH (08:49)
[2021-03-28 11:55] VITALS: BP 134/84
[2021-03-28] MEDS: LORazepam 2 MG TABLET PO PRN (12:07)
[2021-03-28 16:34] VITALS: BP 131/82
[2021-03-28] MEDS: QUEtiapine FUMARATE 100 MG TABLET PO PRN (17:33)
[2021-03-28] MEDS: SIMVASTATIN 20 MG TABLET PO SCH (20:58)
[2021-03-28] MEDS: QUEtiapine FUMARATE 200 MG TABLET PO SCH (20:58)
[2021-03-29 08:30] VITALS: BP 128/77
[2021-03-29] MEDS: NALTREXONE HCL 50 MG TABLET PO SCH (08:40)
[2021-03-29] MEDS: SERTRALINE HCL 100 MG TABLET PO SCH (08:40)
[2021-03-29] MEDS: AmLODIPine BESYLATE 5 MG TABLET PO SCH (08:40)
[2021-03-29] MEDS: LORazepam 2 MG TABLET PO PRN ×2 (12:00→16:00)
[2021-03-29] MEDS: QUEtiapine FUMARATE 100 MG TABLET PO PRN (13:02)
[2021-03-29 16:18] VITALS: BP 138/79
[2021-03-29] MEDS: QUEtiapine FUMARATE 300 MG TABLET PO SCH (20:31)
[2021-03-29] MEDS: SIMVASTATIN 20 MG TABLET PO SCH (20:31)
[2021-03-30] MEDS: SERTRALINE HCL 100 MG TABLET PO SCH (08:35)
[2021-03-30] MEDS: AmLODIPine BESYLATE 5 MG TABLET PO SCH (08:35)
[2021-03-30] MEDS: NALTREXONE HCL 50 MG TABLET PO SCH (08:35)
[2021-03-30 08:45] VITALS: BP 110/71
[2021-03-30] MEDS: LORazepam 2 MG TABLET PO PRN ×2 (09:02→18:00)
[2021-03-30 11:00] VITALS: BP 114/76
[2021-03-30 16:00] VITALS: BP 107/65
[2021-03-30] MEDS: SIMVASTATIN 20 MG TABLET PO SCH (20:17)
[2021-03-30] MEDS: QUEtiapine FUMARATE 300 MG TABLET PO SCH (20:17)
[2021-03-31] MEDS: AmLODIPine BESYLATE 5 MG TABLET PO SCH (09:00)
[2021-03-31 10:41] VITALS: BP 98/50
[2021-03-31] MEDS: NALTREXONE HCL 50 MG TABLET PO SCH (13:39)
[2021-03-31] MEDS: SERTRALINE HCL 100 MG TABLET PO SCH (13:39)
[2021-03-31 15:14] LABS: COVID AG,FIA SOURCE NASOPHARYNGEAL
[2021-03-31 16:40] VITALS: BP 113/78
[2021-03-31] MEDS: LORazepam 2 MG TABLET PO PRN (17:50)
[2021-03-31] MEDS: QUEtiapine FUMARATE 300 MG TABLET PO SCH (20:17)
[2021-03-31] MEDS: SIMVASTATIN 20 MG TABLET PO SCH (20:17)
[2021-04-01 08:00] VITALS: BP 132/74
[2021-04-01] MEDS: AmLODIPine BESYLATE 5 MG TABLET PO SCH (09:56)
[2021-04-01] MEDS: NALTREXONE HCL 50 MG TABLET PO SCH (09:56)
[2021-04-01] MEDS: SERTRALINE HCL 100 MG TABLET PO SCH (09:56)
[2021-04-01] MEDS: LORazepam 2 MG TABLET PO PRN (09:58)
[2021-04-01] MEDS: QUEtiapine FUMARATE 300 MG TABLET PO SCH (20:48)
[2021-04-01] MEDS: SIMVASTATIN 20 MG TABLET PO SCH (20:48)
[2021-04-02 08:00] VITALS: BP 115/71
[2021-04-02] MEDS: AmLODIPine BESYLATE 5 MG TABLET PO SCH (08:43)
[2021-04-02] MEDS: NALTREXONE HCL 50 MG TABLET PO SCH (08:43)
[2021-04-02] MEDS: SERTRALINE HCL 100 MG TABLET PO SCH (08:43)
[2021-04-02] MEDS: LORazepam 2 MG TABLET PO PRN (08:43)
[2021-04-02 16:22] VITALS: BP 110/67
[2021-04-02] MEDS: QUEtiapine FUMARATE 100 MG TABLET PO PRN (17:41)
[2021-04-02] MEDS: SIMVASTATIN 20 MG TABLET PO SCH (20:36)
[2021-04-02] MEDS: QUEtiapine FUMARATE 300 MG TABLET PO SCH (20:36)
[2021-04-03 08:00] VITALS: BP 103/61
[2021-04-03] MEDS: SERTRALINE HCL 100 MG TABLET PO SCH (08:35)
[2021-04-03] MEDS: NALTREXONE HCL 50 MG TABLET PO SCH (08:35)
[2021-04-03] MEDS: AmLODIPine BESYLATE 5 MG TABLET PO SCH (08:35)
[2021-04-03 17:05] VITALS: BP 122/65
[2021-04-03] MEDS: LORazepam 2 MG TABLET PO PRN (17:50)
[2021-04-03] MEDS: SIMVASTATIN 20 MG TABLET PO SCH (20:22)
[2021-04-03] MEDS: QUEtiapine FUMARATE 300 MG TABLET PO SCH (20:22)
[2021-04-04 09:48] VITALS: BP 98/55
[2021-04-04] MEDS: NALTREXONE HCL 50 MG TABLET PO SCH (10:57)
[2021-04-04] MEDS: AmLODIPine BESYLATE 5 MG TABLET PO SCH (10:57)
[2021-04-04] MEDS: SERTRALINE HCL 100 MG TABLET PO SCH (10:57)
[2021-04-04] MEDS: LORazepam 2 MG TABLET PO PRN (12:21)
[2021-04-04 12:31] VITALS: BP 106/65
[2021-04-04 16:37] VITALS: BP 106/69
[2021-04-04] MEDS: QUEtiapine FUMARATE 300 MG TABLET PO SCH (20:38)
[2021-04-04] MEDS: SIMVASTATIN 20 MG TABLET PO SCH (20:38)
[2021-04-05] MEDS: NALTREXONE HCL 50 MG TABLET PO SCH (09:14)
[2021-04-05] MEDS: AmLODIPine BESYLATE 5 MG TABLET PO SCH (09:14)
[2021-04-05] MEDS: SERTRALINE HCL 100 MG TABLET PO SCH (09:14)
[2021-04-05 09:38] VITALS: BP 96/59
[2021-04-05 16:18] VITALS: BP 122/77
[2021-04-05] MEDS: SIMVASTATIN 20 MG TABLET PO SCH (20:45)
[2021-04-05] MEDS: QUEtiapine FUMARATE 300 MG TABLET PO SCH (20:46)
[2021-04-06 08:00] VITALS: BP 108/66
[2021-04-06] MEDS ORDERED: NALTREXONE MICROSPHERES 380 MG IM SCH (09:00)
[2021-04-06] MEDS ORDERED: SERT-162 PO (09:15)
[2021-04-06] MEDS ORDERED: QUET300T2 PO (09:15)
[2021-04-06] MEDS: SERTRALINE HCL 100 MG TABLET PO SCH (09:21)
[2021-04-06] MEDS: AmLODIPine BESYLATE 5 MG TABLET PO SCH (09:21)
== END 2021-04-06 10:15 | disposition home or self-care (01) | DRG 885 ==
LOC: EMS 17:39 → 3EI 03-19 01:28
DX: F31.4 Bipolar disorder, current episode depressed, severe, without psychotic features (principal); R45.851 Suicidal ideations; E87.1 Hypo-osmolality and hyponatremia; F41.9 Anxiety disorder, unspecified; I10 Essential (primary) hypertension; K29.20 Alcoholic gastritis without bleeding; R29.6 Repeated falls; F17.200 Nicotine dependence, unspecified, uncomplicated; R74.01 Elevation of levels of liver transaminase levels; S50.819A Abrasion of unspecified forearm, initial encounter; S60.512A Abrasion of left hand, initial encounter; S60.511A Abrasion of right hand, initial encounter; W18.39XA Other fall on same level, initial encounter; E78.5 Hyperlipidemia, unspecified; F15.90 Other stimulant use, unspecified, uncomplicated; Z59.00 Homelessness unspecified; Z65.3 Problems related to other legal circumstances; Z91.51 Personal history of suicidal behavior; Z88.8 Allergy status to other drugs, medicaments and biological substances; Z79.899 Other long term (current) drug therapy; Y93.89 Activity, other specified; Y92.89 Other specified places as the place of occurrence of the external cause; Y99.8 Other external cause status; Z20.822 Contact with and (suspected) exposure to COVID-19
CPT/HCPCS: 80053; 80061; 81001; 85025; 90715; 99285; G0480; G0481; Q9967

== ENCOUNTER 2021-06-03 17:46 | Inpatient (IN) | payer MEDICARE, MEDICAID ==
[~2021-06-03] VITALS: Ht 185.4 cm; Wt 110.9 kg
[~2021-06-03 17:46] MED LIST changes: -BUPR150SR PO; -CEPH500C3 PO; -FLUO40CA7 PO; -OMEG-135 PO; -QUET200T30 PO; +QUET300T2 PO; +SERT-162 PO; -SULF1TAB42 PO
[2021-06-03 18:19] LABS: BASOPHILS % (AUTO) 1.1 % (0.0-2.0); EOSINOPHILS % (AUTO) 2.7 % (1.0-6.0); HEMATOCRIT 38.6 % (41-53); HEMOGLOBIN 13.4 g/dL (13.5-17.5); LYMPHOCYTES # (AUTO) 3.5 K/uL (1.0-4.8); LYMPHOCYTES % (AUTO) 41.1 % (22.0-44.0); MEAN CORPUSCULAR HEMOGLOBIN 32.1 pg (26.0-34.0); MEAN CORPUSCULAR HGB CONC 34.9 G/dL (31.0-37.0); MEAN CORPUSCULAR VOLUME 92 fL (80-100); MONOCYTES # (AUTO) 0.8 K/uL (0.1-1.0); MONOCYTES % (AUTO) 9.7 % (2.0-9.0); NEUTROPHILS # (AUTO) 3.8 K/uL (1.8-7.7); NEUTROPHILS % (AUTO) 45.4 % (40.0-70.0); PLATELET COUNT (AUTO) 316 K/uL (150-450); RED BLOOD CELL COUNT(AUTO) 4.19 MIL/uL (4.50-5.90); RED CELL DISTRIBUTION WIDTH 15.8 % (11.5-14.5)
[2021-06-03 18:44] LABS: ANION GAP 17 mmol/L (8-16); CALCIUM, TOTAL 8.6 mg/dL (8.8-10.5); CARBON DIOXIDE 20 mmol/L (22-29); CHLORIDE 106 mmol/L (98-107); CREATININE 0.85 mg/dL (0.60-1.30); GLOMERULAR FILTR. RATE CALC > 60 mL/min (>60); GLUCOSE,RANDOM 106 mg/dL (70-110); POTASSIUM 3.4 mmol/L (3.5-5.1); SODIUM SERUM 143 mmol/L (136-145); UREA NITROGEN, BLOOD 8 mg/dL (7-18)
[2021-06-03 18:51] LABS: ALANINE AMINOTRANSFERASE 44 U/L (12-78); ALBUMIN 3.3 g/dL (3.4-5.0); ALKALINE PHOSPHATASE 121 U/L (46-116); ASPARTATE AMINOTRANSFERASE 45 U/L (15-37); BILIRUBIN,TOTAL 0.1 mg/dL (0.1-1.0); TOTAL PROTEIN, SERUM 7.2 g/dL (6.4-8.2)
[2021-06-03 19:50] LABS: COVID AG,FIA SOURCE NASOPHARYNGEAL
[2021-06-03] MEDS ORDERED: POTASSIUM CHLORIDE 20 MEQ ER TABLET PO ONE (20:15)
[2021-06-03] MEDS ORDERED: LISI-662 PO (20:30)
[2021-06-03] MEDS ORDERED: OLAN10TA74 PO (20:30)
[2021-06-03] MEDS ORDERED: IBUPROFEN 800 MG TABLET PO ONE (20:45)
[2021-06-03 20:55] LABS: AMPHET/METH SCREEN,URINE NEGATIVE (NEGATIVE); BARBITURATE SCREEN, URINE NEGATIVE (NEGATIVE); BENZODIAZEPINES SCREEN,URINE POSITIVE (NEGATIVE); CANNABINOID SCREEN,URINE NEGATIVE (NEGATIVE); COCAINE SCREEN,URINE NEGATIVE (NEGATIVE); METHADONE SCREEN, URINE NEGATIVE (NEGATIVE); OPIATE SCREEN,URINE NEGATIVE (NEGATIVE)
[2021-06-03] MEDS ORDERED: HALOPERIDOL 5 MG TABLET PO PRN (21:15)
[2021-06-03 21:22] LABS: PHENCYCLIDINE SCREEN,URINE NEGATIVE (NEGATIVE)
[2021-06-03] MEDS: ZOLPIDEM TARTRATE 10 MG TABLET PO PRN (22:37)
[2021-06-03] MEDS: LORazepam 2 MG TABLET PO PRN (22:37)
[2021-06-03 23:29] LABS: APPEARANCE,URINE CLEAR (CLEAR); BILIRUBIN,URINE NEGATIVE (NEGATIVE); GLUCOSE, URINE (UA) NEGATIVE (NEGATIVE); OCCULT BLOOD,URINE NEGATIVE (NEGATIVE); PH,URINE 5.5 (5.0-8.0); PROTEIN,URINE NEGATIVE (NEGATIVE)
[2021-06-03 23:30] LABS: KETONES,URINE NEGATIVE (NEGATIVE); LEUKOCYTE ESTERASE ,URINE NEGATIVE (NEGATIVE); NITRATE,URINE NEGATIVE (NEGATIVE); UROBILINOGEN,URINE 0.2 mg/dL (<=1.0)
[2021-06-04] VITALS (9 sets, daily range): BP systolic 109–164; BP diastolic 61–125
[2021-06-04 00:28] LABS: CHOL/HDL RATIO 5.8 (4.2-7.3); CHOLESTEROL 261 mg/dL (131-200); HDL CHOLESTEROL 45 mg/dL (40-60); TRIGLYCERIDES 410 mg/dL (15-150)
[2021-06-04] MEDS ORDERED: LOPERAMIDE HCL 2 MG CAPSULE PO PRN (07:30)
[2021-06-04] MEDS ORDERED: GuaiFENesin/D-METHORPHAN [SUGAR-FREE] 200-20MG/10 ML SYRUP UDCUP PO PRN (07:30)
[2021-06-04] MEDS ORDERED: DOCUSATE SODIUM 100 MG CAPSULE PO PRN (07:30)
[2021-06-04] MEDS ORDERED: ACETAMINOPHEN 325 MG TABLET PO PRN (07:30)
[2021-06-04] MEDS ORDERED: NICOTINE 14 MG/24 HOUR PATCH TD PRN (07:30)
[2021-06-04] MEDS ORDERED: PETROLATUM,WHITE 28 GM JELLY TP PRN (07:30)
[2021-06-04] MEDS ORDERED: MAGNESIUM HYDROXIDE SUSPENSION 30 ML UDCUP PO PRN (07:30)
[2021-06-04] MEDS ORDERED: ONDANSETRON HCL 4 MG TABLET PO PRN (07:30)
[2021-06-04] MEDS ORDERED: MAG HYDROX/AL HYDROX/SIMETH ES 30 ML SUSPENSION UDCUP PO PRN (07:30)
[2021-06-04] MEDS ORDERED: ALBUTEROL SULFATE HFA 90 MCG/PUFF 8 GM INHALER IH PRN (07:30)
[2021-06-04] MEDS ORDERED: CloNIDine HCL 0.1 MG TABLET PO PRN (07:30)
[2021-06-04] MEDS: AmLODIPine BESYLATE 5 MG TABLET PO SCH (08:02)
[2021-06-04] MEDS: LISINOPRIL 20 MG TABLET PO SCH ×2 (08:02→16:37)
[2021-06-04] MEDS: LORazepam 2 MG TABLET PO PRN (08:02)
[2021-06-04] MEDS: IBUPROFEN 400 MG TABLET PO PRN (08:02)
[2021-06-04] MEDS ORDERED: LORazepam 2 MG TABLET PO PRN (12:15)
[2021-06-04] MEDS ORDERED: OLANZapine 10 MG TABLET PO ONE (12:15)
[2021-06-04] MEDS ORDERED: CYANOCOBALAMIN 1,000 MCG/ML VIAL IM ONE (12:15)
[2021-06-04] MEDS: THIAMINE 100 MG TABLET PO SCH (16:37)
[2021-06-04] MEDS: BusPIRone HCL 10 MG TABLET PO SCH (20:08)
[2021-06-04] MEDS: SIMVASTATIN 20 MG TABLET PO SCH (20:08)
[2021-06-05] VITALS (7 sets, daily range): BP systolic 144–159; BP diastolic 80–103
[2021-06-05] MEDS ORDERED: LORazepam 2 MG TABLET PO PRN (07:00)
[2021-06-05] MEDS: BusPIRone HCL 10 MG TABLET PO SCH ×2 (10:11→20:15)
[2021-06-05] MEDS: MULTIVITAMINS WITH MINERALS, THERAPEUTIC TABLET PO SCH (10:11)
[2021-06-05] MEDS: LORazepam 2 MG TABLET PO SCH ×4 (10:11→20:15)
[2021-06-05] MEDS: THIAMINE 100 MG TABLET PO SCH ×2 (10:11→16:42)
[2021-06-05] MEDS: LISINOPRIL 20 MG TABLET PO SCH ×2 (10:11→16:42)
[2021-06-05] MEDS: FOLIC ACID 1 MG TABLET PO SCH (10:11)
[2021-06-05] MEDS: AmLODIPine BESYLATE 5 MG TABLET PO SCH (10:11)
[2021-06-05] MEDS: SERTRALINE HCL 100 MG TABLET PO SCH (10:11)
[2021-06-05] MEDS: OLANZapine 10 MG TABLET PO SCH (20:15)
[2021-06-05] MEDS: SIMVASTATIN 20 MG TABLET PO SCH (20:15)
[2021-06-05] MEDS: ZOLPIDEM TARTRATE 10 MG TABLET PO PRN (21:04)
[2021-06-06 05:31] VITALS: BP 148/91
[2021-06-06 08:20] VITALS: BP 152/93
[2021-06-06] MEDS: THIAMINE 100 MG TABLET PO SCH ×2 (09:05→16:37)
[2021-06-06] MEDS: FOLIC ACID 1 MG TABLET PO SCH (09:05)
[2021-06-06] MEDS: SERTRALINE HCL 100 MG TABLET PO SCH (09:05)
[2021-06-06] MEDS: LISINOPRIL 20 MG TABLET PO SCH ×2 (09:06→16:37)
[2021-06-06] MEDS: BusPIRone HCL 10 MG TABLET PO SCH ×2 (09:06→20:13)
[2021-06-06] MEDS: AmLODIPine BESYLATE 5 MG TABLET PO SCH (09:06)
[2021-06-06] MEDS: MULTIVITAMINS WITH MINERALS, THERAPEUTIC TABLET PO SCH (09:06)
[2021-06-06] MEDS: LORazepam 2 MG TABLET PO SCH ×4 (09:06→20:13)
[2021-06-06 16:00] VITALS: BP 155/102
[2021-06-06] MEDS: OLANZapine 10 MG TABLET PO SCH (20:13)
[2021-06-06] MEDS: SIMVASTATIN 20 MG TABLET PO SCH (20:13)
[2021-06-06] MEDS: ZOLPIDEM TARTRATE 10 MG TABLET PO PRN (20:26)
[2021-06-07] MEDS ORDERED: LORazepam 1 MG TABLET PO PRN (07:00)
[2021-06-07 08:54] VITALS: BP 142/82
[2021-06-07] MEDS: MULTIVITAMINS WITH MINERALS, THERAPEUTIC TABLET PO SCH (09:43)
[2021-06-07] MEDS: LORazepam 1 MG TABLET PO SCH ×4 (09:43→20:06)
[2021-06-07] MEDS: SERTRALINE HCL 100 MG TABLET PO SCH (09:43)
[2021-06-07] MEDS: BusPIRone HCL 10 MG TABLET PO SCH ×2 (09:43→20:06)
[2021-06-07] MEDS: LISINOPRIL 20 MG TABLET PO SCH ×2 (09:43→16:21)
[2021-06-07] MEDS: AmLODIPine BESYLATE 5 MG TABLET PO SCH (09:43)
[2021-06-07] MEDS: THIAMINE 100 MG TABLET PO SCH ×2 (09:43→16:20)
[2021-06-07] MEDS: FOLIC ACID 1 MG TABLET PO SCH (09:43)
[2021-06-07 16:10] VITALS: BP 134/70
[2021-06-07 16:38] VITALS: BP 134/70
[2021-06-07] MEDS: OLANZapine 10 MG TABLET PO SCH (20:06)
[2021-06-07] MEDS: SIMVASTATIN 20 MG TABLET PO SCH (20:07)
[2021-06-08] MEDS ORDERED: LORazepam 1 MG TABLET PO PRN (07:00)
[2021-06-08] MEDS ORDERED: BUSP10TA23 PO (07:57)
[2021-06-08 08:00] VITALS: BP_SYST 129; BP_SYST 139; BP_DIAS 93
[2021-06-08] MEDS: AmLODIPine BESYLATE 5 MG TABLET PO SCH (08:11)
[2021-06-08] MEDS: BusPIRone HCL 10 MG TABLET PO SCH (08:12)
[2021-06-08] MEDS: MULTIVITAMINS WITH MINERALS, THERAPEUTIC TABLET PO SCH (08:12)
[2021-06-08] MEDS: THIAMINE 100 MG TABLET PO SCH (08:12)
[2021-06-08] MEDS: SERTRALINE HCL 100 MG TABLET PO SCH (08:12)
[2021-06-08] MEDS: LISINOPRIL 20 MG TABLET PO SCH (08:12)
[2021-06-08] MEDS: FOLIC ACID 1 MG TABLET PO SCH (08:12)
[2021-06-08] MEDS: IBUPROFEN 400 MG TABLET PO PRN (10:45)
== END 2021-06-08 11:40 | disposition home or self-care (01) | DRG 885 ==
LOC: EMS 19:35 → 3EC 23:52
PROVIDERS: ADMIT Psychiatry & Neurology Psychiatry; ATTEND Psychiatry & Neurology Psychiatry
DX: F31.4 Bipolar disorder, current episode depressed, severe, without psychotic features (principal); R45.851 Suicidal ideations; E78.5 Hyperlipidemia, unspecified; E87.6 Hypokalemia; F15.10 Other stimulant abuse, uncomplicated; Z59.00 Homelessness unspecified; I10 Essential (primary) hypertension; Z20.822 Contact with and (suspected) exposure to COVID-19; R56.9 Unspecified convulsions; F41.9 Anxiety disorder, unspecified; F17.210 Nicotine dependence, cigarettes, uncomplicated; F10.10 Alcohol abuse, uncomplicated; F12.10 Cannabis abuse, uncomplicated; Y90.7 Blood alcohol level of 200-239 mg/100 ml; Z91.51 Personal history of suicidal behavior; Z79.899 Other long term (current) drug therapy; Z65.3 Problems related to other legal circumstances; Z88.8 Allergy status to other drugs, medicaments and biological substances; Z71.41 Alcohol abuse counseling and surveillance of alcoholic
CPT/HCPCS: 80053; 80061; 81003; 85025; 99285; G0480; J3420

== ENCOUNTER 2021-06-14 23:36 | Inpatient (IN) | payer MEDICARE, MEDICAID ==
[~2021-06-14] VITALS: Ht 185.4 cm; Wt 106.3 kg
[~2021-06-14 23:36] MED LIST changes: +BUSP10TA23 PO; +LISI-662 PO; +OLAN10TA74 PO; -QUET300T2 PO
[2021-06-15 00:33] LABS: BASOPHILS % (AUTO) 0.8 % (0.0-2.0); EOSINOPHILS % (AUTO) 2.9 % (1.0-6.0); HEMATOCRIT 37.3 % (41-53); HEMOGLOBIN 12.8 g/dL (13.5-17.5); LYMPHOCYTES # (AUTO) 3.9 K/uL (1.0-4.8); LYMPHOCYTES % (AUTO) 39.4 % (22.0-44.0); MEAN CORPUSCULAR HEMOGLOBIN 31.4 pg (26.0-34.0); MEAN CORPUSCULAR HGB CONC 34.4 G/dL (31.0-37.0); MEAN CORPUSCULAR VOLUME 92 fL (80-100); MONOCYTES # (AUTO) 0.7 K/uL (0.1-1.0); MONOCYTES % (AUTO) 7.3 % (2.0-9.0); NEUTROPHILS # (AUTO) 4.9 K/uL (1.8-7.7); NEUTROPHILS % (AUTO) 49.6 % (40.0-70.0); PLATELET COUNT (AUTO) 310 K/uL (150-450); RED BLOOD CELL COUNT(AUTO) 4.07 MIL/uL (4.50-5.90); RED CELL DISTRIBUTION WIDTH 15.9 % (11.5-14.5)
[2021-06-15 00:41] LABS: ANION GAP 11 mmol/L (8-16); CALCIUM, TOTAL 8.4 mg/dL (8.8-10.5); CARBON DIOXIDE 25 mmol/L (22-29); CHLORIDE 103 mmol/L (98-107); CREATININE 0.93 mg/dL (0.60-1.30); GLOMERULAR FILTR. RATE CALC > 60 mL/min (>60); GLUCOSE,RANDOM 93 mg/dL (70-110); POTASSIUM 3.4 mmol/L (3.5-5.1); SODIUM SERUM 139 mmol/L (136-145); UREA NITROGEN, BLOOD 15 mg/dL (7-18)
[2021-06-15 00:48] LABS: ALANINE AMINOTRANSFERASE 67 U/L (12-78); ALBUMIN 3.6 g/dL (3.4-5.0); ALKALINE PHOSPHATASE 97 U/L (46-116); ASPARTATE AMINOTRANSFERASE 56 U/L (15-37); BILIRUBIN,TOTAL 0.2 mg/dL (0.1-1.0); TOTAL PROTEIN, SERUM 7.2 g/dL (6.4-8.2)
[2021-06-15 02:19] LABS: COVID AG,FIA SOURCE NASOPHARYNGEAL
[2021-06-15 02:32] LABS: AMPHET/METH SCREEN,URINE POSITIVE (NEGATIVE); BARBITURATE SCREEN, URINE NEGATIVE (NEGATIVE); BENZODIAZEPINES SCREEN,URINE POSITIVE (NEGATIVE); CANNABINOID SCREEN,URINE POSITIVE (NEGATIVE); COCAINE SCREEN,URINE NEGATIVE (NEGATIVE); METHADONE SCREEN, URINE NEGATIVE (NEGATIVE); OPIATE SCREEN,URINE NEGATIVE (NEGATIVE)
[2021-06-15 02:33] LABS: PHENCYCLIDINE SCREEN,URINE NEGATIVE (NEGATIVE)
[2021-06-15 13:24] VITALS: BP 106/53
[2021-06-15] MEDS: AmLODIPine BESYLATE 5 MG TABLET PO SCH (14:15)
[2021-06-15 16:00] VITALS: BP 131/86
[2021-06-15] MEDS: LISINOPRIL 20 MG TABLET PO SCH (17:29)
[2021-06-15] MEDS: HALOPERIDOL 5 MG TABLET PO PRN (17:29)
[2021-06-15] MEDS: SIMVASTATIN 20 MG TABLET PO SCH (21:00)
[2021-06-15] MEDS: LORazepam 2 MG TABLET PO PRN (21:21)
[2021-06-15] MEDS: ZOLPIDEM TARTRATE 10 MG TABLET PO PRN (21:21)
[2021-06-15] MEDS: GuaiFENesin/D-METHORPHAN/PHENYLEPH 5 ML LIQUID ORAL.SYG PO PRN (21:21)
[2021-06-16] MEDS ORDERED: GuaiFENesin/D-METHORPHAN [SUGAR-FREE] 200-20MG/10 ML SYRUP UDCUP PO PRN (07:00)
[2021-06-16] MEDS ORDERED: MAGNESIUM HYDROXIDE SUSPENSION 30 ML UDCUP PO PRN (07:00)
[2021-06-16] MEDS ORDERED: MAG HYDROX/AL HYDROX/SIMETH ES 30 ML SUSPENSION UDCUP PO PRN (07:00)
[2021-06-16] MEDS ORDERED: LOPERAMIDE HCL 2 MG CAPSULE PO PRN (07:00)
[2021-06-16] MEDS ORDERED: ALBUTEROL SULFATE HFA 90 MCG/PUFF 8 GM INHALER IH PRN (07:00)
[2021-06-16] MEDS ORDERED: ACETAMINOPHEN 325 MG TABLET PO PRN (07:00)
[2021-06-16] MEDS ORDERED: ONDANSETRON HCL 4 MG TABLET PO PRN (07:00)
[2021-06-16] MEDS ORDERED: DOCUSATE SODIUM 100 MG CAPSULE PO PRN (07:00)
[2021-06-16] MEDS ORDERED: CloNIDine HCL 0.1 MG TABLET PO PRN (07:00)
[2021-06-16] MEDS ORDERED: PETROLATUM,WHITE 28 GM JELLY TP PRN (07:00)
[2021-06-16] MEDS ORDERED: NICOTINE 14 MG/24 HOUR PATCH TD PRN (07:00)
[2021-06-16] MEDS: AmLODIPine BESYLATE 5 MG TABLET PO SCH (08:28)
[2021-06-16] MEDS: LISINOPRIL 20 MG TABLET PO SCH ×2 (08:28→17:20)
[2021-06-16] MEDS: NICOTINE 21 MG/24 HOUR PATCH TD SCH (08:29)
[2021-06-16 16:07] VITALS: BP 176/93
[2021-06-16 17:18] VITALS: BP 155/88
[2021-06-16] MEDS: GuaiFENesin/D-METHORPHAN/PHENYLEPH 5 ML LIQUID ORAL.SYG PO PRN (17:18)
[2021-06-16] MEDS: IBUPROFEN 400 MG TABLET PO PRN (17:18)
[2021-06-16] MEDS: HALOPERIDOL 5 MG TABLET PO PRN (17:18)
[2021-06-16] MEDS: OLANZapine 10 MG TABLET PO SCH (20:56)
[2021-06-16] MEDS: SIMVASTATIN 20 MG TABLET PO SCH (20:56)
[2021-06-16] MEDS: LORazepam 2 MG TABLET PO PRN (20:57)
[2021-06-16] MEDS: BusPIRone HCL 10 MG TABLET PO SCH (21:04)
[2021-06-17 09:23] VITALS: BP 150/94
[2021-06-17] MEDS: BusPIRone HCL 10 MG TABLET PO SCH ×2 (10:55→20:25)
[2021-06-17] MEDS: SERTRALINE HCL 50 MG TABLET PO SCH (10:55)
[2021-06-17] MEDS: AmLODIPine BESYLATE 5 MG TABLET PO SCH (10:56)
[2021-06-17] MEDS: LISINOPRIL 20 MG TABLET PO SCH ×2 (10:56→16:07)
[2021-06-17] MEDS: NICOTINE 21 MG/24 HOUR PATCH TD SCH (10:56)
[2021-06-17 16:18] VITALS: BP 151/78
[2021-06-17] MEDS: OLANZapine 10 MG TABLET PO SCH (20:25)
[2021-06-17] MEDS: SIMVASTATIN 20 MG TABLET PO SCH (20:25)
[2021-06-18 08:45] VITALS: BP 124/74
[2021-06-18] MEDS: LISINOPRIL 20 MG TABLET PO SCH ×2 (09:07→16:26)
[2021-06-18] MEDS: SERTRALINE HCL 50 MG TABLET PO SCH (09:07)
[2021-06-18] MEDS: AmLODIPine BESYLATE 5 MG TABLET PO SCH (09:07)
[2021-06-18] MEDS: NICOTINE 21 MG/24 HOUR PATCH TD SCH (09:08)
[2021-06-18] MEDS: BusPIRone HCL 10 MG TABLET PO SCH ×2 (09:08→20:05)
[2021-06-18 13:05] VITALS: BP 127/74
[2021-06-18 16:23] VITALS: BP 114/67
[2021-06-18] MEDS: LORazepam 2 MG TABLET PO PRN (19:01)
[2021-06-18] MEDS: OLANZapine 10 MG TABLET PO SCH (20:06)
[2021-06-18] MEDS: SIMVASTATIN 20 MG TABLET PO SCH (20:06)
[2021-06-18] MEDS: GuaiFENesin/D-METHORPHAN/PHENYLEPH 5 ML LIQUID ORAL.SYG PO PRN (20:07)
[2021-06-18 20:52] VITALS: BP 118/68
[2021-06-18] MEDS: IBUPROFEN 400 MG TABLET PO PRN (20:52)
[2021-06-19] MEDS: AmLODIPine BESYLATE 5 MG TABLET PO SCH (08:23)
[2021-06-19] MEDS: BusPIRone HCL 10 MG TABLET PO SCH ×2 (08:23→20:27)
[2021-06-19] MEDS: NICOTINE 21 MG/24 HOUR PATCH TD SCH (08:23)
[2021-06-19] MEDS: SERTRALINE HCL 50 MG TABLET PO SCH (08:23)
[2021-06-19] MEDS: LISINOPRIL 20 MG TABLET PO SCH ×2 (08:23→16:25)
[2021-06-19 08:42] VITALS: BP 139/89
[2021-06-19 16:00] VITALS: BP_SYST 121; BP_DIAS 53; BP_DIAS 62
[2021-06-19] MEDS: SIMVASTATIN 20 MG TABLET PO SCH (20:27)
[2021-06-19] MEDS: OLANZapine 10 MG TABLET PO SCH (20:28)
[2021-06-20 08:30] VITALS: BP 124/72
[2021-06-20] MEDS: SERTRALINE HCL 50 MG TABLET PO SCH (08:44)
[2021-06-20] MEDS: BusPIRone HCL 10 MG TABLET PO SCH ×2 (08:44→20:42)
[2021-06-20] MEDS: NICOTINE 21 MG/24 HOUR PATCH TD SCH (08:44)
[2021-06-20] MEDS: LISINOPRIL 20 MG TABLET PO SCH ×2 (08:44→16:41)
[2021-06-20] MEDS: AmLODIPine BESYLATE 5 MG TABLET PO SCH (08:44)
[2021-06-20 16:20] VITALS: BP 123/64
[2021-06-20] MEDS: LORazepam 2 MG TABLET PO PRN (16:43)
[2021-06-20] MEDS: SIMVASTATIN 20 MG TABLET PO SCH (20:42)
[2021-06-20] MEDS: OLANZapine 10 MG TABLET PO SCH (20:44)
[2021-06-21] MEDS: SERTRALINE HCL 50 MG TABLET PO SCH (09:05)
[2021-06-21] MEDS: LISINOPRIL 20 MG TABLET PO SCH ×2 (09:05→16:48)
[2021-06-21] MEDS: BusPIRone HCL 10 MG TABLET PO SCH ×2 (09:05→20:24)
[2021-06-21] MEDS: AmLODIPine BESYLATE 5 MG TABLET PO SCH (09:07)
[2021-06-21] MEDS: NICOTINE 21 MG/24 HOUR PATCH TD SCH (09:07)
[2021-06-21 09:26] VITALS: BP 114/54
[2021-06-21] MEDS: HALOPERIDOL 5 MG TABLET PO PRN (16:48)
[2021-06-21] MEDS: LORazepam 2 MG TABLET PO PRN (16:55)
[2021-06-21 17:04] VITALS: BP 135/81
[2021-06-21 19:05] LABS: COVID AG,FIA SOURCE NASAL SWAB
[2021-06-21] MEDS: OLANZapine 10 MG TABLET PO SCH (20:24)
[2021-06-21] MEDS: SIMVASTATIN 20 MG TABLET PO SCH (20:24)
[2021-06-21] MEDS: ZOLPIDEM TARTRATE 10 MG TABLET PO PRN (20:24)
[2021-06-22] MEDS: SERTRALINE HCL 50 MG TABLET PO SCH (10:01)
[2021-06-22] MEDS: AmLODIPine BESYLATE 5 MG TABLET PO SCH (10:01)
[2021-06-22] MEDS: LISINOPRIL 20 MG TABLET PO SCH ×2 (10:02→16:21)
[2021-06-22] MEDS: BusPIRone HCL 10 MG TABLET PO SCH ×2 (10:02→20:08)
[2021-06-22] MEDS: NICOTINE 21 MG/24 HOUR PATCH TD SCH (10:03)
[2021-06-22 10:06] VITALS: BP 118/61
[2021-06-22 16:22] VITALS: BP 129/77
[2021-06-22] MEDS: LORazepam 2 MG TABLET PO PRN (17:15)
[2021-06-22] MEDS: SIMVASTATIN 20 MG TABLET PO SCH (20:08)
[2021-06-22] MEDS: OLANZapine 10 MG TABLET PO SCH (20:08)
[2021-06-23] MEDS: BusPIRone HCL 10 MG TABLET PO SCH ×2 (09:23→20:38)
[2021-06-23] MEDS: SERTRALINE HCL 50 MG TABLET PO SCH (09:23)
[2021-06-23] MEDS: LISINOPRIL 20 MG TABLET PO SCH ×2 (09:23→16:48)
[2021-06-23] MEDS: NICOTINE 21 MG/24 HOUR PATCH TD SCH (09:24)
[2021-06-23] MEDS: AmLODIPine BESYLATE 5 MG TABLET PO SCH (09:24)
[2021-06-23 09:45] VITALS: BP 98/55
[2021-06-23 16:47] VITALS: BP 117/80
[2021-06-23] MEDS: LORazepam 2 MG TABLET PO PRN (16:48)
[2021-06-23] MEDS: HALOPERIDOL 5 MG TABLET PO PRN (16:48)
[2021-06-23] MEDS: OLANZapine 10 MG TABLET PO SCH (20:38)
[2021-06-23] MEDS: SIMVASTATIN 20 MG TABLET PO SCH (20:38)
[2021-06-24] MEDS: LISINOPRIL 20 MG TABLET PO SCH ×3 (08:57→16:39)
[2021-06-24] MEDS: BusPIRone HCL 10 MG TABLET PO SCH ×2 (08:57→20:59)
[2021-06-24] MEDS: SERTRALINE HCL 50 MG TABLET PO SCH (08:58)
[2021-06-24] MEDS: AmLODIPine BESYLATE 5 MG TABLET PO SCH ×2 (08:58→09:00)
[2021-06-24] MEDS: NICOTINE 21 MG/24 HOUR PATCH TD SCH (08:59)
[2021-06-24] MEDS: HALOPERIDOL 5 MG TABLET PO PRN (16:39)
[2021-06-24 16:55] VITALS: BP 134/79
[2021-06-24] MEDS: LORazepam 2 MG TABLET PO PRN (17:56)
[2021-06-24] MEDS: SIMVASTATIN 20 MG TABLET PO SCH (20:59)
[2021-06-24] MEDS: OLANZapine 10 MG TABLET PO SCH (20:59)
[2021-06-25] MEDS: SERTRALINE HCL 50 MG TABLET PO SCH (08:25)
[2021-06-25] MEDS: AmLODIPine BESYLATE 5 MG TABLET PO SCH (08:25)
[2021-06-25] MEDS: LISINOPRIL 20 MG TABLET PO SCH ×2 (08:25→16:28)
[2021-06-25] MEDS: NICOTINE 21 MG/24 HOUR PATCH TD SCH (08:26)
[2021-06-25] MEDS: BusPIRone HCL 10 MG TABLET PO SCH ×2 (08:27→20:30)
[2021-06-25 16:37] VITALS: BP 141/80
[2021-06-25] MEDS: SIMVASTATIN 20 MG TABLET PO SCH (20:30)
[2021-06-25] MEDS: OLANZapine 10 MG TABLET PO SCH (20:30)
[2021-06-26 08:25] VITALS: BP 91/44
[2021-06-26] MEDS: BusPIRone HCL 10 MG TABLET PO SCH ×2 (08:38→20:36)
[2021-06-26] MEDS: AmLODIPine BESYLATE 5 MG TABLET PO SCH ×2 (08:39→08:43)
[2021-06-26] MEDS: LISINOPRIL 20 MG TABLET PO SCH ×2 (08:40→16:29)
[2021-06-26] MEDS: SERTRALINE HCL 50 MG TABLET PO SCH (08:40)
[2021-06-26] MEDS: NICOTINE 21 MG/24 HOUR PATCH TD SCH (08:41)
[2021-06-26 16:00] VITALS: BP 143/88
[2021-06-26] MEDS: LORazepam 2 MG TABLET PO PRN (16:35)
[2021-06-26] MEDS: SIMVASTATIN 20 MG TABLET PO SCH (20:36)
[2021-06-26] MEDS: OLANZapine 10 MG TABLET PO SCH (20:36)
[2021-06-27] MEDS: BusPIRone HCL 10 MG TABLET PO SCH ×2 (08:33→20:14)
[2021-06-27 08:34] VITALS: BP 107/59
[2021-06-27] MEDS: NICOTINE 21 MG/24 HOUR PATCH TD SCH (08:34)
[2021-06-27] MEDS: SERTRALINE HCL 50 MG TABLET PO SCH (08:34)
[2021-06-27] MEDS: AmLODIPine BESYLATE 5 MG TABLET PO SCH (08:34)
[2021-06-27] MEDS: LISINOPRIL 20 MG TABLET PO SCH ×2 (08:34→16:08)
[2021-06-27 16:00] VITALS: BP 120/82
[2021-06-27] MEDS: LORazepam 2 MG TABLET PO PRN (16:21)
[2021-06-27] MEDS: OLANZapine 10 MG TABLET PO SCH (20:14)
[2021-06-27] MEDS: SIMVASTATIN 20 MG TABLET PO SCH (20:14)
[2021-06-28] MEDS: SERTRALINE HCL 100 MG TABLET PO SCH (09:50)
[2021-06-28] MEDS: BusPIRone HCL 10 MG TABLET PO SCH ×2 (09:51→20:20)
[2021-06-28] MEDS: LISINOPRIL 20 MG TABLET PO SCH ×2 (09:51→17:04)
[2021-06-28] MEDS: AmLODIPine BESYLATE 5 MG TABLET PO SCH (09:51)
[2021-06-28] MEDS: NICOTINE 21 MG/24 HOUR PATCH TD SCH (10:01)
[2021-06-28 10:44] VITALS: BP 113/70
[2021-06-28] MEDS: IBUPROFEN 400 MG TABLET PO PRN (10:47)
[2021-06-28 16:00] VITALS: BP 120/74
[2021-06-28] MEDS: LORazepam 2 MG TABLET PO PRN (16:12)
[2021-06-28] MEDS: SIMVASTATIN 20 MG TABLET PO SCH (20:20)
[2021-06-28] MEDS: OLANZapine 10 MG TABLET PO SCH (20:20)
[2021-06-28 21:03] LABS: COVID AG,FIA SOURCE NASAL SWAB
[2021-06-29] MEDS ORDERED: OLAN10TA74 PO (01:00)
[2021-06-29] MEDS ORDERED: SERT-162 PO (01:00)
[2021-06-29] MEDS: AmLODIPine BESYLATE 5 MG TABLET PO SCH (09:03)
[2021-06-29] MEDS: BusPIRone HCL 10 MG TABLET PO SCH (09:03)
[2021-06-29] MEDS: LISINOPRIL 20 MG TABLET PO SCH (09:03)
[2021-06-29] MEDS: NICOTINE 21 MG/24 HOUR PATCH TD SCH (09:04)
[2021-06-29] MEDS: SERTRALINE HCL 100 MG TABLET PO SCH (09:04)
== END 2021-06-29 09:30 | disposition home or self-care (01) | DRG 885 ==
LOC: EMS 23:39 → 3EI 06-15 12:51
PROVIDERS: ADMIT Psychiatry & Neurology Psychiatry; ATTEND Psychiatry & Neurology Psychiatry
DX: F31.5 Bipolar disorder, current episode depressed, severe, with psychotic features (principal); R45.851 Suicidal ideations; D64.9 Anemia, unspecified; F41.9 Anxiety disorder, unspecified; K59.00 Constipation, unspecified; I10 Essential (primary) hypertension; Z59.00 Homelessness unspecified; E87.6 Hypokalemia; E78.5 Hyperlipidemia, unspecified; E66.3 Overweight; F10.20 Alcohol dependence, uncomplicated; Z20.822 Contact with and (suspected) exposure to COVID-19; F17.210 Nicotine dependence, cigarettes, uncomplicated; F12.10 Cannabis abuse, uncomplicated; F15.10 Other stimulant abuse, uncomplicated; Y90.6 Blood alcohol level of 120-199 mg/100 ml; Z65.3 Problems related to other legal circumstances; Z91.51 Personal history of suicidal behavior; Z79.899 Other long term (current) drug therapy; Z88.8 Allergy status to other drugs, medicaments and biological substances; Z71.41 Alcohol abuse counseling and surveillance of alcoholic; Z71.51 Drug abuse counseling and surveillance of drug abuser; Z68.30 Body mass index [BMI] 30.0-30.9, adult
CPT/HCPCS: 80053; 85025; 87081; 99285; G0480

== ENCOUNTER 2021-07-13 12:14 | Inpatient (IN) | payer MEDICARE, MEDICAID ==
[~2021-07-13] VITALS: Ht 185.4 cm; Wt 109.8 kg
[~2021-07-13 12:14] MED LIST changes: -BUSP10TA23 PO
[2021-07-13 12:51] LABS: BASOPHILS % (AUTO) 0.4 % (0.0-2.0); EOSINOPHILS % (AUTO) 0.5 % (1.0-6.0); HEMATOCRIT 39.9 % (41-53); HEMOGLOBIN 13.8 g/dL (13.5-17.5); LYMPHOCYTES # (AUTO) 3.2 K/uL (1.0-4.8); LYMPHOCYTES % (AUTO) 32.3 % (22.0-44.0); MEAN CORPUSCULAR HEMOGLOBIN 31.2 pg (26.0-34.0); MEAN CORPUSCULAR HGB CONC 34.6 G/dL (31.0-37.0); MEAN CORPUSCULAR VOLUME 90 fL (80-100); MONOCYTES # (AUTO) 0.9 K/uL (0.1-1.0); MONOCYTES % (AUTO) 9.7 % (2.0-9.0); NEUTROPHILS # (AUTO) 5.6 K/uL (1.8-7.7); NEUTROPHILS % (AUTO) 57.1 % (40.0-70.0); PLATELET COUNT (AUTO) 307 K/uL (150-450); RED BLOOD CELL COUNT(AUTO) 4.42 MIL/uL (4.50-5.90); RED CELL DISTRIBUTION WIDTH 15.4 % (11.5-14.5)
[2021-07-13 13:02] LABS: ANION GAP 14 mmol/L (8-16); CALCIUM, TOTAL 8.7 mg/dL (8.8-10.5); CARBON DIOXIDE 24 mmol/L (22-29); CHLORIDE 99 mmol/L (98-107); CREATININE 0.94 mg/dL (0.60-1.30); GLOMERULAR FILTR. RATE CALC > 60 mL/min (>60); GLUCOSE,RANDOM 118 mg/dL (70-110); POTASSIUM 3.5 mmol/L (3.5-5.1); SODIUM SERUM 137 mmol/L (136-145); UREA NITROGEN, BLOOD 6 mg/dL (7-18)
[2021-07-13 13:07] LABS: ALANINE AMINOTRANSFERASE 83 U/L (12-78); ALBUMIN 3.8 g/dL (3.4-5.0); ALKALINE PHOSPHATASE 110 U/L (46-116); ASPARTATE AMINOTRANSFERASE 114 U/L (15-37); BILIRUBIN,TOTAL 0.3 mg/dL (0.1-1.0); TOTAL PROTEIN, SERUM 7.7 g/dL (6.4-8.2)
[2021-07-13 13:10] LABS: AMPHET/METH SCREEN,URINE NEGATIVE (NEGATIVE); BARBITURATE SCREEN, URINE NEGATIVE (NEGATIVE); BENZODIAZEPINES SCREEN,URINE NEGATIVE (NEGATIVE); CANNABINOID SCREEN,URINE NEGATIVE (NEGATIVE); COCAINE SCREEN,URINE NEGATIVE (NEGATIVE); METHADONE SCREEN, URINE NEGATIVE (NEGATIVE); OPIATE SCREEN,URINE NEGATIVE (NEGATIVE)
[2021-07-13 13:11] LABS: PHENCYCLIDINE SCREEN,URINE NEGATIVE (NEGATIVE)
[2021-07-13 14:54] LABS: COVID AG,FIA SOURCE NASAL SWAB
[2021-07-13] MEDS: LORazepam 2 MG TABLET PO PRN (21:20)
[2021-07-13] MEDS ORDERED: ONDANSETRON HCL 4 MG TABLET PO ONE (22:00)
[2021-07-14] MEDS: LORazepam 2 MG TABLET PO PRN (00:23)
[2021-07-14 00:40] VITALS: BP 137/92
[2021-07-14] MEDS ORDERED: PNEUMOCOCCAL VACCINE POLYVALENT 0.5 ML VIAL [PPSV23] IM. ONE (03:00)
[2021-07-14] MEDS ORDERED: LORazepam 2 MG TABLET PO PRN (07:00)
[2021-07-14 08:08] LABS: CHOL/HDL RATIO 3.5 (4.2-7.3)
[2021-07-14] MEDS: THIAMINE 100 MG TABLET PO SCH (08:33)
[2021-07-14] MEDS: LORazepam 2 MG TABLET PO SCH ×4 (08:34→20:34)
[2021-07-14] MEDS: FOLIC ACID 1 MG TABLET PO SCH (08:34)
[2021-07-14] MEDS: MULTIVITAMINS, THERAPEUTIC TABLET PO SCH (08:34)
[2021-07-14 09:00] VITALS: BP 153/106
[2021-07-14] MEDS: SERTRALINE HCL 100 MG TABLET PO SCH (11:56)
[2021-07-14] MEDS ORDERED: MAG HYDROX/AL HYDROX/SIMETH ES 30 ML SUSPENSION UDCUP PO PRN (13:30)
[2021-07-14] MEDS ORDERED: ACETAMINOPHEN 325 MG TABLET PO PRN (13:30)
[2021-07-14] MEDS ORDERED: ALBUTEROL SULFATE HFA 90 MCG/PUFF 8 GM INHALER IH PRN (13:30)
[2021-07-14] MEDS ORDERED: MAGNESIUM HYDROXIDE SUSPENSION 30 ML UDCUP PO PRN (13:30)
[2021-07-14] MEDS ORDERED: GuaiFENesin/D-METHORPHAN [SUGAR-FREE] 200-20MG/10 ML SYRUP UDCUP PO PRN (13:30)
[2021-07-14] MEDS ORDERED: ONDANSETRON HCL 4 MG TABLET PO PRN (13:30)
[2021-07-14] MEDS ORDERED: PETROLATUM,WHITE 28 GM JELLY TP PRN (13:30)
[2021-07-14] MEDS ORDERED: DOCUSATE SODIUM 100 MG CAPSULE PO PRN (13:30)
[2021-07-14] MEDS ORDERED: CloNIDine HCL 0.1 MG TABLET PO PRN (13:30)
[2021-07-14] MEDS ORDERED: LOPERAMIDE HCL 2 MG CAPSULE PO PRN (13:30)
[2021-07-14] MEDS: LISINOPRIL 20 MG TABLET PO SCH (16:40)
[2021-07-14 17:14] VITALS: BP 127/57
[2021-07-14] MEDS: OLANZapine 10 MG TABLET PO SCH (20:34)
[2021-07-14] MEDS: SIMVASTATIN 20 MG TABLET PO SCH (20:34)
[2021-07-15 09:05] VITALS: BP 147/73
[2021-07-15 09:15] VITALS: BP 144/73
[2021-07-15] MEDS: LISINOPRIL 20 MG TABLET PO SCH ×2 (09:22→16:20)
[2021-07-15] MEDS: AmLODIPine BESYLATE 5 MG TABLET PO SCH (09:22)
[2021-07-15] MEDS: THIAMINE 100 MG TABLET PO SCH (09:23)
[2021-07-15] MEDS: FOLIC ACID 1 MG TABLET PO SCH (09:23)
[2021-07-15] MEDS: LORazepam 2 MG TABLET PO SCH ×4 (09:23→20:34)
[2021-07-15] MEDS: MULTIVITAMINS, THERAPEUTIC TABLET PO SCH (09:23)
[2021-07-15] MEDS: SERTRALINE HCL 100 MG TABLET PO SCH (09:24)
[2021-07-15] MEDS: BusPIRone HCL 10 MG TABLET PO SCH ×2 (09:24→20:34)
[2021-07-15] MEDS: IBUPROFEN 400 MG TABLET PO PRN (15:00)
[2021-07-15 16:00] VITALS: BP 130/85
[2021-07-15 16:37] VITALS: BP 130/85
[2021-07-15] MEDS: OLANZapine 10 MG TABLET PO SCH (20:34)
[2021-07-15] MEDS: SIMVASTATIN 20 MG TABLET PO SCH (20:34)
[2021-07-16] MEDS ORDERED: LORazepam 1 MG TABLET PO PRN (07:00)
[2021-07-16] MEDS: LISINOPRIL 20 MG TABLET PO SCH ×2 (08:33→16:20)
[2021-07-16] MEDS: SERTRALINE HCL 100 MG TABLET PO SCH (08:33)
[2021-07-16] MEDS: BusPIRone HCL 10 MG TABLET PO SCH ×2 (08:34→21:19)
[2021-07-16] MEDS: FOLIC ACID 1 MG TABLET PO SCH (08:34)
[2021-07-16] MEDS: THIAMINE 100 MG TABLET PO SCH (08:34)
[2021-07-16] MEDS: MULTIVITAMINS, THERAPEUTIC TABLET PO SCH (08:34)
[2021-07-16] MEDS: AmLODIPine BESYLATE 5 MG TABLET PO SCH (08:36)
[2021-07-16] MEDS: LORazepam 1 MG TABLET PO SCH ×4 (08:37→21:19)
[2021-07-16 09:00] VITALS: BP 132/71
[2021-07-16 09:29] VITALS: BP 132/71
[2021-07-16] MEDS: IBUPROFEN 400 MG TABLET PO PRN (09:29)
[2021-07-16 17:10] VITALS: BP 125/77
[2021-07-16 17:17] VITALS: BP 125/77
[2021-07-16] MEDS: AMOX TR/POT CLAV 500 MG/125 MG TABLET PO SCH (17:35)
[2021-07-16] MEDS: BACITRACIN 28 GM OINTMENT TP SCH (20:00)
[2021-07-16] MEDS: OLANZapine 10 MG TABLET PO SCH (21:19)
[2021-07-16] MEDS: SIMVASTATIN 20 MG TABLET PO SCH (21:19)
[2021-07-17] MEDS ORDERED: LORazepam 1 MG TABLET PO PRN (07:00)
[2021-07-17 08:00] VITALS: BP 118/82
[2021-07-17] MEDS: AmLODIPine BESYLATE 5 MG TABLET PO SCH (09:00)
[2021-07-17] MEDS: LISINOPRIL 20 MG TABLET PO SCH ×2 (09:00→17:24)
[2021-07-17] MEDS: THIAMINE 100 MG TABLET PO SCH (09:07)
[2021-07-17] MEDS: FOLIC ACID 1 MG TABLET PO SCH (09:07)
[2021-07-17] MEDS: AMOX TR/POT CLAV 500 MG/125 MG TABLET PO SCH ×3 (09:07→17:24)
[2021-07-17] MEDS: MULTIVITAMINS, THERAPEUTIC TABLET PO SCH (09:07)
[2021-07-17] MEDS: BusPIRone HCL 10 MG TABLET PO SCH ×2 (09:08→21:28)
[2021-07-17] MEDS: SERTRALINE HCL 100 MG TABLET PO SCH (09:08)
[2021-07-17] MEDS: BACITRACIN 28 GM OINTMENT TP SCH ×2 (09:18→17:24)
[2021-07-17 09:31] VITALS: BP 118/82
[2021-07-17 16:02] VITALS: BP 120/69
[2021-07-17 16:56] VITALS: BP 120/69
[2021-07-17] MEDS: QUEtiapine FUMARATE 100 MG TABLET PO PRN (17:25)
[2021-07-17] MEDS: SIMVASTATIN 20 MG TABLET PO SCH (21:29)
[2021-07-17] MEDS: OLANZapine 10 MG TABLET PO SCH (21:29)
[2021-07-18] MEDS: SERTRALINE HCL 100 MG TABLET PO SCH (09:27)
[2021-07-18] MEDS: LISINOPRIL 20 MG TABLET PO SCH ×2 (09:27→17:16)
[2021-07-18] MEDS: MULTIVITAMINS, THERAPEUTIC TABLET PO SCH (09:27)
[2021-07-18] MEDS: THIAMINE 100 MG TABLET PO SCH (09:27)
[2021-07-18] MEDS: AmLODIPine BESYLATE 5 MG TABLET PO SCH (09:27)
[2021-07-18] MEDS: FOLIC ACID 1 MG TABLET PO SCH (09:27)
[2021-07-18] MEDS: BACITRACIN 28 GM OINTMENT TP SCH ×2 (09:28→17:16)
[2021-07-18] MEDS: AMOX TR/POT CLAV 500 MG/125 MG TABLET PO SCH ×3 (09:28→17:16)
[2021-07-18] MEDS: BusPIRone HCL 10 MG TABLET PO SCH ×2 (09:32→21:13)
[2021-07-18 10:18] VITALS: BP 135/83
[2021-07-18] MEDS: IBUPROFEN 400 MG TABLET PO PRN (13:22)
[2021-07-18] MEDS: QUEtiapine FUMARATE 100 MG TABLET PO PRN ×2 (13:22→21:13)
[2021-07-18 16:41] VITALS: BP 120/71
[2021-07-18 16:46] VITALS: BP 120/71
[2021-07-18] MEDS: OLANZapine 10 MG TABLET PO SCH (21:13)
[2021-07-18] MEDS: SIMVASTATIN 20 MG TABLET PO SCH (21:13)
[2021-07-18] MEDS: ZOLPIDEM TARTRATE 10 MG TABLET PO PRN (21:13)
[2021-07-19 10:05] VITALS: BP 116/75
[2021-07-19] MEDS: BusPIRone HCL 10 MG TABLET PO SCH ×2 (11:00→20:51)
[2021-07-19] MEDS: AMOX TR/POT CLAV 500 MG/125 MG TABLET PO SCH ×3 (11:01→17:23)
[2021-07-19] MEDS: FOLIC ACID 1 MG TABLET PO SCH (11:03)
[2021-07-19] MEDS: AmLODIPine BESYLATE 5 MG TABLET PO SCH (11:03)
[2021-07-19] MEDS: MULTIVITAMINS, THERAPEUTIC TABLET PO SCH (11:05)
[2021-07-19] MEDS: THIAMINE 100 MG TABLET PO SCH (11:06)
[2021-07-19] MEDS: LISINOPRIL 20 MG TABLET PO SCH ×2 (11:06→17:23)
[2021-07-19] MEDS: SERTRALINE HCL 100 MG TABLET PO SCH (11:07)
[2021-07-19] MEDS: BACITRACIN 28 GM OINTMENT TP SCH ×2 (11:08→17:23)
[2021-07-19] MEDS: IBUPROFEN 400 MG TABLET PO PRN (13:16)
[2021-07-19] MEDS: QUEtiapine FUMARATE 100 MG TABLET PO PRN ×2 (13:17→17:23)
[2021-07-19 15:13] LABS: COVID AG,FIA SOURCE NASOPHARYNGEAL
[2021-07-19 16:40] VITALS: BP 113/66
[2021-07-19] MEDS: SIMVASTATIN 20 MG TABLET PO SCH (20:51)
[2021-07-19] MEDS: OLANZapine 10 MG TABLET PO SCH (20:51)
[2021-07-20] MEDS: AMOX TR/POT CLAV 500 MG/125 MG TABLET PO SCH ×3 (09:32→16:12)
[2021-07-20] MEDS: MULTIVITAMINS, THERAPEUTIC TABLET PO SCH (09:32)
[2021-07-20] MEDS: FOLIC ACID 1 MG TABLET PO SCH (09:32)
[2021-07-20] MEDS: LISINOPRIL 20 MG TABLET PO SCH ×2 (09:33→16:12)
[2021-07-20] MEDS: SERTRALINE HCL 100 MG TABLET PO SCH (09:33)
[2021-07-20] MEDS: THIAMINE 100 MG TABLET PO SCH (09:33)
[2021-07-20] MEDS: AmLODIPine BESYLATE 5 MG TABLET PO SCH (09:33)
[2021-07-20] MEDS: BusPIRone HCL 10 MG TABLET PO SCH ×2 (10:25→20:04)
[2021-07-20] MEDS: BACITRACIN 28 GM OINTMENT TP SCH ×2 (10:25→16:12)
[2021-07-20 11:26] VITALS: BP 136/82
[2021-07-20] MEDS: IBUPROFEN 400 MG TABLET PO PRN (11:29)
[2021-07-20] MEDS: QUEtiapine FUMARATE 100 MG TABLET PO PRN ×2 (11:29→16:23)
[2021-07-20 16:42] VITALS: BP 126/87
[2021-07-20] MEDS: OLANZapine 10 MG TABLET PO SCH (20:04)
[2021-07-20] MEDS: ZOLPIDEM TARTRATE 10 MG TABLET PO PRN (20:04)
[2021-07-20] MEDS: SIMVASTATIN 20 MG TABLET PO SCH (20:04)
[2021-07-21] MEDS: AMOX TR/POT CLAV 500 MG/125 MG TABLET PO SCH ×3 (09:06→16:54)
[2021-07-21] MEDS: BusPIRone HCL 10 MG TABLET PO SCH ×2 (09:06→20:52)
[2021-07-21] MEDS: LISINOPRIL 20 MG TABLET PO SCH ×2 (09:06→16:54)
[2021-07-21] MEDS: SERTRALINE HCL 100 MG TABLET PO SCH (09:07)
[2021-07-21] MEDS: AmLODIPine BESYLATE 5 MG TABLET PO SCH (09:07)
[2021-07-21] MEDS: FOLIC ACID 1 MG TABLET PO SCH (09:07)
[2021-07-21] MEDS: MULTIVITAMINS, THERAPEUTIC TABLET PO SCH (09:07)
[2021-07-21] MEDS: THIAMINE 100 MG TABLET PO SCH (09:07)
[2021-07-21 09:45] VITALS: BP 104/69
[2021-07-21] MEDS: QUEtiapine FUMARATE 100 MG TABLET PO PRN ×2 (12:40→16:54)
[2021-07-21] MEDS: NICOTINE 14 MG/24 HOUR PATCH TD PRN (12:41)
[2021-07-21] MEDS: IBUPROFEN 600 MG TABLET PO PRN (12:41)
[2021-07-21] MEDS: BACITRACIN 28 GM OINTMENT TP SCH ×2 (12:42→16:54)
[2021-07-21 16:46] VITALS: BP 103/64
[2021-07-21] MEDS: ZOLPIDEM TARTRATE 10 MG TABLET PO PRN (20:52)
[2021-07-21] MEDS: OLANZapine 10 MG TABLET PO SCH (20:52)
[2021-07-21] MEDS: SIMVASTATIN 20 MG TABLET PO SCH (20:52)
[2021-07-22 08:43] VITALS: BP 125/80
[2021-07-22] MEDS: LISINOPRIL 20 MG TABLET PO SCH ×2 (09:32→17:08)
[2021-07-22] MEDS: MULTIVITAMINS, THERAPEUTIC TABLET PO SCH (09:33)
[2021-07-22] MEDS: AmLODIPine BESYLATE 5 MG TABLET PO SCH (09:33)
[2021-07-22] MEDS: BusPIRone HCL 10 MG TABLET PO SCH ×2 (09:34→20:54)
[2021-07-22] MEDS: FOLIC ACID 1 MG TABLET PO SCH (09:34)
[2021-07-22] MEDS: BACITRACIN 28 GM OINTMENT TP SCH ×2 (09:34→17:09)
[2021-07-22] MEDS: SERTRALINE HCL 100 MG TABLET PO SCH (09:34)
[2021-07-22] MEDS: AMOX TR/POT CLAV 500 MG/125 MG TABLET PO SCH ×3 (09:34→17:08)
[2021-07-22] MEDS: THIAMINE 100 MG TABLET PO SCH (09:34)
[2021-07-22] MEDS: NICOTINE 14 MG/24 HOUR PATCH TD PRN (12:17)
[2021-07-22] MEDS: BuPROPion HCL XL 150 MG ER TABLET PO SCH (13:49)
[2021-07-22] MEDS: IBUPROFEN 600 MG TABLET PO PRN (14:52)
[2021-07-22 16:41] VITALS: BP 146/84
[2021-07-22] MEDS: QUEtiapine FUMARATE 100 MG TABLET PO PRN (17:08)
[2021-07-22] MEDS: SIMVASTATIN 20 MG TABLET PO SCH (20:54)
[2021-07-22] MEDS: ZOLPIDEM TARTRATE 10 MG TABLET PO PRN (20:54)
[2021-07-22] MEDS: OLANZapine 10 MG TABLET PO SCH (20:54)
[2021-07-23 08:51] VITALS: BP 143/87
[2021-07-23] MEDS: AMOX TR/POT CLAV 500 MG/125 MG TABLET PO SCH ×2 (10:30→14:06)
[2021-07-23] MEDS: THIAMINE 100 MG TABLET PO SCH (10:30)
[2021-07-23] MEDS: FOLIC ACID 1 MG TABLET PO SCH (10:30)
[2021-07-23] MEDS: BusPIRone HCL 10 MG TABLET PO SCH ×2 (10:30→20:40)
[2021-07-23] MEDS: BuPROPion HCL XL 150 MG ER TABLET PO SCH (10:30)
[2021-07-23] MEDS: LISINOPRIL 20 MG TABLET PO SCH ×2 (10:30→17:39)
[2021-07-23] MEDS: QUEtiapine FUMARATE 100 MG TABLET PO PRN ×3 (10:30→19:00)
[2021-07-23] MEDS: MULTIVITAMINS, THERAPEUTIC TABLET PO SCH (10:30)
[2021-07-23] MEDS: BACITRACIN 28 GM OINTMENT TP SCH ×2 (10:31→17:39)
[2021-07-23] MEDS: AmLODIPine BESYLATE 5 MG TABLET PO SCH (10:31)
[2021-07-23] MEDS: SERTRALINE HCL 100 MG TABLET PO SCH (10:31)
[2021-07-23] MEDS: NICOTINE 14 MG/24 HOUR PATCH TD PRN (10:33)
[2021-07-23] MEDS: IBUPROFEN 600 MG TABLET PO PRN (14:33)
[2021-07-23 16:38] VITALS: BP 100/68
[2021-07-23] MEDS: OLANZapine 10 MG TABLET PO SCH (20:42)
[2021-07-23] MEDS: ZOLPIDEM TARTRATE 10 MG TABLET PO PRN (20:42)
[2021-07-23] MEDS: SIMVASTATIN 20 MG TABLET PO SCH (20:42)
[2021-07-24] MEDS: SERTRALINE HCL 100 MG TABLET PO SCH (08:35)
[2021-07-24] MEDS: THIAMINE 100 MG TABLET PO SCH (08:35)
[2021-07-24] MEDS: AmLODIPine BESYLATE 5 MG TABLET PO SCH (08:36)
[2021-07-24] MEDS: MULTIVITAMINS, THERAPEUTIC TABLET PO SCH (08:36)
[2021-07-24] MEDS: BusPIRone HCL 10 MG TABLET PO SCH ×2 (08:37→20:11)
[2021-07-24] MEDS: BuPROPion HCL XL 150 MG ER TABLET PO SCH (08:37)
[2021-07-24] MEDS: FOLIC ACID 1 MG TABLET PO SCH (08:37)
[2021-07-24] MEDS: BACITRACIN 28 GM OINTMENT TP SCH ×2 (08:38→16:43)
[2021-07-24] MEDS: LISINOPRIL 20 MG TABLET PO SCH ×2 (08:38→16:29)
[2021-07-24] MEDS: NICOTINE 14 MG/24 HOUR PATCH TD PRN (08:52)
[2021-07-24 09:56] VITALS: BP 121/68
[2021-07-24 16:27] VITALS: BP 100/58
[2021-07-24] MEDS: IBUPROFEN 600 MG TABLET PO PRN (18:04)
[2021-07-24] MEDS: SIMVASTATIN 20 MG TABLET PO SCH (20:12)
[2021-07-24] MEDS: OLANZapine 10 MG TABLET PO SCH (20:12)
[2021-07-25] MEDS: LISINOPRIL 20 MG TABLET PO SCH ×2 (09:00→16:05)
[2021-07-25] MEDS: AmLODIPine BESYLATE 5 MG TABLET PO SCH (09:00)
[2021-07-25] MEDS: THIAMINE 100 MG TABLET PO SCH (09:30)
[2021-07-25] MEDS: FOLIC ACID 1 MG TABLET PO SCH (09:30)
[2021-07-25] MEDS: SERTRALINE HCL 100 MG TABLET PO SCH (09:30)
[2021-07-25 09:31] VITALS: BP 113/54
[2021-07-25] MEDS: BuPROPion HCL XL 150 MG ER TABLET PO SCH (09:31)
[2021-07-25] MEDS: MULTIVITAMINS, THERAPEUTIC TABLET PO SCH (09:31)
[2021-07-25] MEDS: BusPIRone HCL 10 MG TABLET PO SCH ×2 (09:31→20:01)
[2021-07-25] MEDS: NICOTINE 14 MG/24 HOUR PATCH TD PRN (09:42)
[2021-07-25] MEDS: BACITRACIN 28 GM OINTMENT TP SCH ×2 (09:42→16:05)
[2021-07-25] MEDS: IBUPROFEN 600 MG TABLET PO PRN (16:06)
[2021-07-25 16:36] VITALS: BP 133/79
[2021-07-25] MEDS: SIMVASTATIN 20 MG TABLET PO SCH (20:01)
[2021-07-25] MEDS: OLANZapine 10 MG TABLET PO SCH (20:01)
[2021-07-26 08:12] VITALS: BP 113/62
[2021-07-26] MEDS: SERTRALINE HCL 100 MG TABLET PO SCH (08:52)
[2021-07-26] MEDS: THIAMINE 100 MG TABLET PO SCH (08:53)
[2021-07-26] MEDS: FOLIC ACID 1 MG TABLET PO SCH (08:53)
[2021-07-26] MEDS: BusPIRone HCL 10 MG TABLET PO SCH ×2 (08:53→21:29)
[2021-07-26] MEDS: BACITRACIN 28 GM OINTMENT TP SCH ×2 (08:53→16:06)
[2021-07-26] MEDS: BuPROPion HCL XL 150 MG ER TABLET PO SCH (08:53)
[2021-07-26] MEDS: MULTIVITAMINS, THERAPEUTIC TABLET PO SCH (08:53)
[2021-07-26] MEDS: NICOTINE 14 MG/24 HOUR PATCH TD PRN (08:59)
[2021-07-26] MEDS: AmLODIPine BESYLATE 5 MG TABLET PO SCH (09:00)
[2021-07-26] MEDS: LISINOPRIL 20 MG TABLET PO SCH ×2 (09:00→16:05)
[2021-07-26 15:14] LABS: COVID AG,FIA SOURCE NASAL SWAB
[2021-07-26 16:40] VITALS: BP 130/90
[2021-07-26] MEDS: SIMVASTATIN 20 MG TABLET PO SCH (20:01)
[2021-07-26] MEDS: OLANZapine 10 MG TABLET PO SCH (20:03)
[2021-07-27 09:00] VITALS: BP 114/62
[2021-07-27] MEDS: BuPROPion HCL XL 150 MG ER TABLET PO SCH (09:31)
[2021-07-27] MEDS: FOLIC ACID 1 MG TABLET PO SCH (09:34)
[2021-07-27] MEDS: BusPIRone HCL 10 MG TABLET PO SCH ×2 (09:35→20:01)
[2021-07-27] MEDS: THIAMINE 100 MG TABLET PO SCH (09:35)
[2021-07-27] MEDS: LISINOPRIL 20 MG TABLET PO SCH ×2 (09:35→16:05)
[2021-07-27] MEDS: AmLODIPine BESYLATE 5 MG TABLET PO SCH (09:36)
[2021-07-27] MEDS: SERTRALINE HCL 100 MG TABLET PO SCH (09:36)
[2021-07-27] MEDS: MULTIVITAMINS, THERAPEUTIC TABLET PO SCH (09:36)
[2021-07-27] MEDS: BACITRACIN 28 GM OINTMENT TP SCH ×2 (09:37→16:05)
[2021-07-27 17:03] VITALS: BP 118/68
[2021-07-27] MEDS: IBUPROFEN 600 MG TABLET PO PRN (19:05)
[2021-07-27] MEDS: OLANZapine 10 MG TABLET PO SCH (20:01)
[2021-07-27] MEDS: SIMVASTATIN 20 MG TABLET PO SCH (20:01)
[2021-07-28 08:05] VITALS: BP 99/59
[2021-07-28] MEDS: THIAMINE 100 MG TABLET PO SCH (08:45)
[2021-07-28] MEDS: BuPROPion HCL XL 150 MG ER TABLET PO SCH (08:45)
[2021-07-28] MEDS: MULTIVITAMINS, THERAPEUTIC TABLET PO SCH (08:45)
[2021-07-28] MEDS: BusPIRone HCL 10 MG TABLET PO SCH ×2 (08:45→20:20)
[2021-07-28] MEDS: SERTRALINE HCL 100 MG TABLET PO SCH (08:47)
[2021-07-28] MEDS: FOLIC ACID 1 MG TABLET PO SCH (08:49)
[2021-07-28] MEDS: AmLODIPine BESYLATE 5 MG TABLET PO SCH (08:50)
[2021-07-28] MEDS: BACITRACIN 28 GM OINTMENT TP SCH ×2 (08:50→17:52)
[2021-07-28] MEDS: LISINOPRIL 20 MG TABLET PO SCH ×2 (08:50→16:21)
[2021-07-28] MEDS: NICOTINE 14 MG/24 HOUR PATCH TD PRN (08:53)
[2021-07-28 16:43] VITALS: BP 129/81
[2021-07-28] MEDS: OLANZapine 10 MG TABLET PO SCH (20:20)
[2021-07-28] MEDS: SIMVASTATIN 20 MG TABLET PO SCH (20:20)
[2021-07-29] MEDS: BuPROPion HCL XL 150 MG ER TABLET PO SCH (09:46)
[2021-07-29] MEDS: MULTIVITAMINS, THERAPEUTIC TABLET PO SCH (09:46)
[2021-07-29] MEDS: LISINOPRIL 20 MG TABLET PO SCH ×2 (09:47→16:37)
[2021-07-29] MEDS: SERTRALINE HCL 100 MG TABLET PO SCH (09:47)
[2021-07-29] MEDS: FOLIC ACID 1 MG TABLET PO SCH (09:47)
[2021-07-29] MEDS: AmLODIPine BESYLATE 5 MG TABLET PO SCH (09:47)
[2021-07-29] MEDS: BACITRACIN 28 GM OINTMENT TP SCH ×2 (09:48→16:37)
[2021-07-29] MEDS: BusPIRone HCL 10 MG TABLET PO SCH ×2 (09:48→20:29)
[2021-07-29] MEDS: THIAMINE 100 MG TABLET PO SCH (09:48)
[2021-07-29] MEDS: NICOTINE 14 MG/24 HOUR PATCH TD PRN (11:54)
[2021-07-29 17:02] VITALS: BP 135/60
[2021-07-29] MEDS: SIMVASTATIN 20 MG TABLET PO SCH (20:29)
[2021-07-29] MEDS: OLANZapine 10 MG TABLET PO SCH (20:29)
[2021-07-30 08:00] VITALS: BP 115/70
[2021-07-30] MEDS: THIAMINE 100 MG TABLET PO SCH (08:43)
[2021-07-30] MEDS: SERTRALINE HCL 100 MG TABLET PO SCH (08:43)
[2021-07-30] MEDS: FOLIC ACID 1 MG TABLET PO SCH (08:44)
[2021-07-30] MEDS: LISINOPRIL 20 MG TABLET PO SCH ×2 (08:44→17:07)
[2021-07-30] MEDS: MULTIVITAMINS, THERAPEUTIC TABLET PO SCH (08:44)
[2021-07-30] MEDS: BusPIRone HCL 10 MG TABLET PO SCH ×2 (08:44→20:00)
[2021-07-30] MEDS: AmLODIPine BESYLATE 5 MG TABLET PO SCH (08:44)
[2021-07-30] MEDS: BuPROPion HCL XL 150 MG ER TABLET PO SCH (08:46)
[2021-07-30] MEDS: BACITRACIN 28 GM OINTMENT TP SCH ×2 (11:43→17:07)
[2021-07-30] MEDS: NICOTINE 14 MG/24 HOUR PATCH TD PRN (11:43)
[2021-07-30 15:06] LABS: COVID AG,FIA SOURCE NASAL SWAB
[2021-07-30 16:27] VITALS: BP 127/63
[2021-07-30] MEDS: QUEtiapine FUMARATE 100 MG TABLET PO PRN (17:07)
[2021-07-30] MEDS: SIMVASTATIN 20 MG TABLET PO SCH (20:00)
[2021-07-30] MEDS: ZOLPIDEM TARTRATE 10 MG TABLET PO PRN (20:30)
[2021-07-30] MEDS: OLANZapine 10 MG TABLET PO SCH (20:59)
[2021-07-31] MEDS: THIAMINE 100 MG TABLET PO SCH (08:17)
[2021-07-31] MEDS: FOLIC ACID 1 MG TABLET PO SCH (08:17)
[2021-07-31] MEDS: SERTRALINE HCL 100 MG TABLET PO SCH (08:18)
[2021-07-31] MEDS: AmLODIPine BESYLATE 5 MG TABLET PO SCH (08:19)
[2021-07-31] MEDS: BuPROPion HCL XL 150 MG ER TABLET PO SCH (08:20)
[2021-07-31] MEDS: BusPIRone HCL 10 MG TABLET PO SCH ×2 (08:20→20:17)
[2021-07-31] MEDS: LISINOPRIL 20 MG TABLET PO SCH ×2 (08:20→17:57)
[2021-07-31] MEDS: BACITRACIN 28 GM OINTMENT TP SCH ×2 (08:20→17:57)
[2021-07-31] MEDS: MULTIVITAMINS, THERAPEUTIC TABLET PO SCH (08:20)
[2021-07-31 08:30] VITALS: BP 145/88
[2021-07-31 16:00] VITALS: BP 113/67
[2021-07-31] MEDS: SIMVASTATIN 20 MG TABLET PO SCH (20:17)
[2021-07-31] MEDS: OLANZapine 10 MG TABLET PO SCH (20:17)
[2021-08-01 08:00] VITALS: BP 119/66
[2021-08-01] MEDS: BACITRACIN 28 GM OINTMENT TP SCH ×2 (09:46→16:21)
[2021-08-01] MEDS: FOLIC ACID 1 MG TABLET PO SCH (09:46)
[2021-08-01] MEDS: MULTIVITAMINS, THERAPEUTIC TABLET PO SCH (09:47)
[2021-08-01] MEDS: AmLODIPine BESYLATE 5 MG TABLET PO SCH (09:47)
[2021-08-01] MEDS: LISINOPRIL 20 MG TABLET PO SCH ×2 (09:47→16:20)
[2021-08-01] MEDS: BusPIRone HCL 10 MG TABLET PO SCH ×2 (09:47→20:08)
[2021-08-01] MEDS: THIAMINE 100 MG TABLET PO SCH (09:47)
[2021-08-01] MEDS: BuPROPion HCL XL 150 MG ER TABLET PO SCH (09:47)
[2021-08-01] MEDS: SERTRALINE HCL 100 MG TABLET PO SCH (09:47)
[2021-08-01 16:00] VITALS: BP 114/75
[2021-08-01] MEDS: SIMVASTATIN 20 MG TABLET PO SCH (20:08)
[2021-08-01] MEDS: OLANZapine 10 MG TABLET PO SCH (20:08)
[2021-08-02 08:02] VITALS: BP 137/80
[2021-08-02] MEDS: MULTIVITAMINS, THERAPEUTIC TABLET PO SCH (08:29)
[2021-08-02] MEDS: THIAMINE 100 MG TABLET PO SCH (08:29)
[2021-08-02] MEDS: FOLIC ACID 1 MG TABLET PO SCH (08:30)
[2021-08-02] MEDS: BusPIRone HCL 10 MG TABLET PO SCH ×2 (08:30→20:07)
[2021-08-02] MEDS: BuPROPion HCL XL 150 MG ER TABLET PO SCH (08:30)
[2021-08-02] MEDS: AmLODIPine BESYLATE 5 MG TABLET PO SCH (08:31)
[2021-08-02] MEDS: SERTRALINE HCL 100 MG TABLET PO SCH (08:31)
[2021-08-02] MEDS: LISINOPRIL 20 MG TABLET PO SCH ×2 (08:32→16:51)
[2021-08-02] MEDS: BACITRACIN 28 GM OINTMENT TP SCH ×2 (08:32→16:59)
[2021-08-02 16:30] VITALS: BP 125/82
[2021-08-02] MEDS: SIMVASTATIN 20 MG TABLET PO SCH (20:07)
[2021-08-02] MEDS: OLANZapine 10 MG TABLET PO SCH (20:08)
[2021-08-03] MEDS: SERTRALINE HCL 100 MG TABLET PO SCH (08:37)
[2021-08-03] MEDS: THIAMINE 100 MG TABLET PO SCH (08:37)
[2021-08-03] MEDS: BusPIRone HCL 10 MG TABLET PO SCH ×2 (08:37→20:07)
[2021-08-03] MEDS: BuPROPion HCL XL 150 MG ER TABLET PO SCH (08:37)
[2021-08-03] MEDS: MULTIVITAMINS, THERAPEUTIC TABLET PO SCH (08:38)
[2021-08-03] MEDS: AmLODIPine BESYLATE 5 MG TABLET PO SCH (08:38)
[2021-08-03] MEDS: LISINOPRIL 20 MG TABLET PO SCH ×2 (08:38→16:13)
[2021-08-03] MEDS: FOLIC ACID 1 MG TABLET PO SCH (08:38)
[2021-08-03] MEDS: BACITRACIN 28 GM OINTMENT TP SCH ×2 (09:00→16:14)
[2021-08-03 09:11] VITALS: BP 135/77
[2021-08-03 16:00] VITALS: BP 150/99
[2021-08-03] MEDS: OLANZapine 10 MG TABLET PO SCH (20:07)
[2021-08-03] MEDS: SIMVASTATIN 20 MG TABLET PO SCH (20:08)
[2021-08-04 09:08] VITALS: BP 109/76
[2021-08-04] MEDS: BuPROPion HCL XL 150 MG ER TABLET PO SCH (09:09)
[2021-08-04] MEDS: LISINOPRIL 20 MG TABLET PO SCH ×2 (09:09→16:25)
[2021-08-04] MEDS: MULTIVITAMINS, THERAPEUTIC TABLET PO SCH (09:09)
[2021-08-04] MEDS: BusPIRone HCL 10 MG TABLET PO SCH ×2 (09:09→20:02)
[2021-08-04] MEDS: THIAMINE 100 MG TABLET PO SCH (09:09)
[2021-08-04] MEDS: FOLIC ACID 1 MG TABLET PO SCH (09:09)
[2021-08-04] MEDS: SERTRALINE HCL 100 MG TABLET PO SCH (09:09)
[2021-08-04] MEDS: AmLODIPine BESYLATE 5 MG TABLET PO SCH (09:10)
[2021-08-04 16:25] VITALS: BP 109/72
[2021-08-04] MEDS: OLANZapine 10 MG TABLET PO SCH (20:02)
[2021-08-04] MEDS: SIMVASTATIN 20 MG TABLET PO SCH (20:02)
[2021-08-05 08:00] VITALS: BP 114/70
[2021-08-05] MEDS: SERTRALINE HCL 100 MG TABLET PO SCH (08:10)
[2021-08-05] MEDS: MULTIVITAMINS, THERAPEUTIC TABLET PO SCH (08:10)
[2021-08-05] MEDS: LISINOPRIL 20 MG TABLET PO SCH (08:11)
[2021-08-05] MEDS: THIAMINE 100 MG TABLET PO SCH (08:11)
[2021-08-05] MEDS: AmLODIPine BESYLATE 5 MG TABLET PO SCH (08:11)
[2021-08-05] MEDS: BuPROPion HCL XL 150 MG ER TABLET PO SCH (08:11)
[2021-08-05] MEDS: FOLIC ACID 1 MG TABLET PO SCH (08:11)
[2021-08-05] MEDS: BusPIRone HCL 10 MG TABLET PO SCH (08:12)
[2021-08-05] MEDS ORDERED: SERT-162 PO (12:53)
[2021-08-05] MEDS ORDERED: BUSP10TA23 PO (12:53)
[2021-08-05] MEDS ORDERED: OLAN10TA74 PO (12:53)
[2021-08-05] MEDS ORDERED: BUPR-49 PO (12:53)
== END 2021-08-05 14:45 | disposition home or self-care (01) | DRG 885 ==
LOC: EMS 12:23 → 3EI 22:00
PROVIDERS: ADMIT Psychiatry & Neurology Child & Adolescent Psychiatry; ATTEND Psychiatry & Neurology Psychiatry
DX: F31.5 Bipolar disorder, current episode depressed, severe, with psychotic features (principal); L03.119 Cellulitis of unspecified part of limb; R45.851 Suicidal ideations; E66.9 Obesity, unspecified; E78.5 Hyperlipidemia, unspecified; F10.20 Alcohol dependence, uncomplicated; F15.10 Other stimulant abuse, uncomplicated; F12.10 Cannabis abuse, uncomplicated; G40.909 Epilepsy, unspecified, not intractable, without status epilepticus; Z20.822 Contact with and (suspected) exposure to COVID-19; F17.210 Nicotine dependence, cigarettes, uncomplicated; I10 Essential (primary) hypertension; Z59.00 Homelessness unspecified; Z68.31 Body mass index [BMI] 31.0-31.9, adult; Z65.3 Problems related to other legal circumstances; Z79.899 Other long term (current) drug therapy; Z91.51 Personal history of suicidal behavior; Z88.8 Allergy status to other drugs, medicaments and biological substances
CPT/HCPCS: 80053; 80061; 83036; 85025; 87081; 90732; 99285; G0480; Q0162

== ENCOUNTER 2021-08-30 12:02 | Inpatient (IN) | payer MEDICAID, MEDICARE ==
[~2021-08-30] VITALS: Ht 185.4 cm; Wt 104.8 kg
[~2021-08-30 12:02] MED LIST changes: +BUPR-49 PO; +BUSP10TA23 PO
[2021-08-30 13:37] LABS: BASOPHILS % (AUTO) 0.7 % (0.0-2.0); EOSINOPHILS % (AUTO) 1.4 % (1.0-6.0); HEMATOCRIT 35.5 % (41-53); HEMOGLOBIN 11.9 g/dL (13.5-17.5); LYMPHOCYTES # (AUTO) 3.6 K/uL (1.0-4.8); LYMPHOCYTES % (AUTO) 42.2 % (22.0-44.0); MEAN CORPUSCULAR HEMOGLOBIN 31.2 pg (26.0-34.0); MEAN CORPUSCULAR HGB CONC 33.6 G/dL (31.0-37.0); MEAN CORPUSCULAR VOLUME 93 fL (80-100); MONOCYTES # (AUTO) 0.5 K/uL (0.1-1.0); MONOCYTES % (AUTO) 6.1 % (2.0-9.0); NEUTROPHILS # (AUTO) 4.3 K/uL (1.8-7.7); NEUTROPHILS % (AUTO) 49.6 % (40.0-70.0); PLATELET COUNT (AUTO) 493 K/uL (150-450); RED BLOOD CELL COUNT(AUTO) 3.83 MIL/uL (4.50-5.90); RED CELL DISTRIBUTION WIDTH 15.6 % (11.5-14.5)
[2021-08-30 13:46] LABS: ANION GAP 14 mmol/L (8-16); CALCIUM, TOTAL 8.4 mg/dL (8.8-10.5); CARBON DIOXIDE 24 mmol/L (22-29); CHLORIDE 109 mmol/L (98-107); CREATININE 0.96 mg/dL (0.60-1.30); GLOMERULAR FILTR. RATE CALC > 60 mL/min (>60); GLUCOSE,RANDOM 96 mg/dL (70-110); POTASSIUM 3.7 mmol/L (3.5-5.1); SODIUM SERUM 147 mmol/L (136-145); UREA NITROGEN, BLOOD 9 mg/dL (7-18)
[2021-08-30 13:50] LABS: ALANINE AMINOTRANSFERASE 36 U/L (12-78); ALBUMIN 3.5 g/dL (3.4-5.0); ALKALINE PHOSPHATASE 86 U/L (46-116); ASPARTATE AMINOTRANSFERASE 50 U/L (15-37); BILIRUBIN,TOTAL 0.2 mg/dL (0.1-1.0); TOTAL PROTEIN, SERUM 7.7 g/dL (6.4-8.2)
[2021-08-30] MEDS ORDERED: ZOLPIDEM TARTRATE 10 MG TABLET PO PRN (15:00)
[2021-08-30] MEDS ORDERED: QUEtiapine FUMARATE 100 MG TABLET PO PRN (15:00)
[2021-08-30 15:41] LABS: APPEARANCE,URINE CLEAR (CLEAR); BILIRUBIN,URINE NEGATIVE (NEGATIVE); GLUCOSE, URINE (UA) NEGATIVE (NEGATIVE); KETONES,URINE NEGATIVE (NEGATIVE); LEUKOCYTE ESTERASE ,URINE NEGATIVE (NEGATIVE); NITRATE,URINE NEGATIVE (NEGATIVE); OCCULT BLOOD,URINE NEGATIVE (NEGATIVE); PH,URINE 5.5 (5.0-8.0); PROTEIN,URINE NEGATIVE (NEGATIVE); SPECIFIC GRAVITIY, URINE 1.004 (1.003-1.030); UROBILINOGEN,URINE <=1.0 mg/dL (<=1.0)
[2021-08-30 15:47] LABS: AMPHET/METH SCREEN,URINE NEGATIVE (NEGATIVE); BARBITURATE SCREEN, URINE NEGATIVE (NEGATIVE); BENZODIAZEPINES SCREEN,URINE NEGATIVE (NEGATIVE); CANNABINOID SCREEN,URINE NEGATIVE (NEGATIVE); COCAINE SCREEN,URINE NEGATIVE (NEGATIVE); METHADONE SCREEN, URINE NEGATIVE (NEGATIVE); OPIATE SCREEN,URINE NEGATIVE (NEGATIVE); PHENCYCLIDINE SCREEN,URINE NEGATIVE (NEGATIVE)
[2021-08-30 16:32] LABS: COVID AG,FIA SOURCE NASAL SWAB
[2021-08-30] MEDS ORDERED: LORazepam 2 MG/ML VIAL IM ONE (16:45)
[2021-08-30] MEDS ORDERED: DiphenhydrAMINE HCL 50 MG/ML VIAL IM ONE (16:45)
[2021-08-30] MEDS: LORazepam 2 MG TABLET PO PRN (22:54)
[2021-08-31 01:43] VITALS: BP 130/63
[2021-08-31] MEDS ORDERED: INFLUENZA VIRUS VACCINE QVS 2021-22 (6MO+)/PF 60 MCG/0.5 ML SYRINGE IM. ONE (02:30)
[2021-08-31 09:29] VITALS: BP 129/80
[2021-08-31] MEDS ORDERED: SERTRALINE HCL 100 MG TABLET PO SCH (12:30)
[2021-08-31] MEDS: BuPROPion HCL XL 150 MG ER TABLET PO SCH (13:14)
[2021-08-31] MEDS: BusPIRone HCL 10 MG TABLET PO SCH ×2 (13:15→20:05)
[2021-08-31 16:10] VITALS: BP 141/74
[2021-08-31] MEDS: OLANZapine 10 MG TABLET PO SCH (20:05)
[2021-08-31 20:40] VITALS: BP 139/80
[2021-08-31] MEDS: ACETAMINOPHEN 325 MG TABLET PO PRN (20:44)
[2021-09-01] MEDS: BuPROPion HCL XL 150 MG ER TABLET PO SCH (09:42)
[2021-09-01] MEDS: SERTRALINE HCL 50 MG TABLET PO SCH (09:42)
[2021-09-01] MEDS: BusPIRone HCL 10 MG TABLET PO SCH ×2 (09:42→20:14)
[2021-09-01 10:02] VITALS: BP 67/118
[2021-09-01] MEDS: ACETAMINOPHEN 325 MG TABLET PO PRN (10:12)
[2021-09-01] MEDS ORDERED: IBUPROFEN 600 MG TABLET PO PRN (13:45)
[2021-09-01] MEDS ORDERED: IBUPROFEN 400 MG TABLET PO PRN (16:15)
[2021-09-01] MEDS ORDERED: CloNIDine HCL 0.1 MG TABLET PO PRN (16:15)
[2021-09-01] MEDS ORDERED: PETROLATUM,WHITE 28 GM JELLY TP PRN (16:15)
[2021-09-01] MEDS ORDERED: DOCUSATE SODIUM 100 MG CAPSULE PO PRN (16:15)
[2021-09-01] MEDS ORDERED: LOPERAMIDE HCL 2 MG CAPSULE PO PRN (16:15)
[2021-09-01] MEDS ORDERED: ALBUTEROL SULFATE HFA 90 MCG/PUFF 8 GM INHALER IH PRN (16:15)
[2021-09-01] MEDS ORDERED: MAGNESIUM HYDROXIDE SUSPENSION 30 ML UDCUP PO PRN (16:15)
[2021-09-01] MEDS ORDERED: MAG HYDROX/AL HYDROX/SIMETH ES 30 ML SUSPENSION UDCUP PO PRN (16:15)
[2021-09-01] MEDS ORDERED: GuaiFENesin/D-METHORPHAN [SUGAR-FREE] 200-20MG/10 ML SYRUP UDCUP PO PRN (16:15)
[2021-09-01] MEDS ORDERED: NICOTINE 14 MG/24 HOUR PATCH TD PRN (16:15)
[2021-09-01] MEDS ORDERED: ACETAMINOPHEN 325 MG TABLET PO PRN (16:15)
[2021-09-01] MEDS ORDERED: ONDANSETRON HCL 4 MG TABLET PO PRN (16:15)
[2021-09-01] MEDS: LISINOPRIL 20 MG TABLET PO SCH (16:38)
[2021-09-01] MEDS: BACITRACIN 28 GM OINTMENT TP SCH (16:40)
[2021-09-01] MEDS: LORazepam 2 MG TABLET PO PRN (16:40)
[2021-09-01 17:30] VITALS: BP 123/54
[2021-09-01] MEDS: OLANZapine 10 MG TABLET PO SCH (20:14)
[2021-09-01] MEDS: SIMVASTATIN 20 MG TABLET PO SCH (20:14)
[2021-09-02 08:00] VITALS: BP 159/99
[2021-09-02] MEDS: LISINOPRIL 20 MG TABLET PO SCH ×2 (09:00→16:26)
[2021-09-02] MEDS: SERTRALINE HCL 50 MG TABLET PO SCH (09:00)
[2021-09-02] MEDS: BusPIRone HCL 10 MG TABLET PO SCH ×2 (09:00→20:02)
[2021-09-02] MEDS: AmLODIPine BESYLATE 5 MG TABLET PO SCH (09:01)
[2021-09-02] MEDS: BuPROPion HCL XL 150 MG ER TABLET PO SCH (09:02)
[2021-09-02] MEDS: BACITRACIN 28 GM OINTMENT TP SCH ×2 (11:00→16:26)
[2021-09-02] MEDS: LORazepam 2 MG TABLET PO PRN ×2 (11:02→17:48)
[2021-09-02 16:25] VITALS: BP 124/84
[2021-09-02] MEDS: SIMVASTATIN 20 MG TABLET PO SCH (20:02)
[2021-09-02] MEDS: OLANZapine 10 MG TABLET PO SCH (20:02)
[2021-09-03] MEDS: BuPROPion HCL XL 150 MG ER TABLET PO SCH (08:14)
[2021-09-03] MEDS: BusPIRone HCL 10 MG TABLET PO SCH (08:15)
[2021-09-03] MEDS: SERTRALINE HCL 50 MG TABLET PO SCH (08:15)
[2021-09-03] MEDS: AmLODIPine BESYLATE 5 MG TABLET PO SCH (08:15)
[2021-09-03] MEDS: LISINOPRIL 20 MG TABLET PO SCH (08:15)
[2021-09-03] MEDS: BACITRACIN 28 GM OINTMENT TP SCH (08:16)
[2021-09-03] MEDS ORDERED: BUSP10TA23 PO (10:04)
[2021-09-03] MEDS ORDERED: SERT-162 PO (10:04)
[2021-09-03] MEDS ORDERED: AMLO-257 PO (10:04)
[2021-09-03] MEDS ORDERED: SIMV-260 PO (10:04)
[2021-09-03] MEDS ORDERED: LISI-662 PO (10:04)
[2021-09-03] MEDS ORDERED: BUPR-49 PO (10:04)
[2021-09-03] MEDS ORDERED: OLAN10TA74 PO (10:04)
[2021-09-03 10:53] VITALS: BP 160/99
== END 2021-09-03 11:55 | disposition home or self-care (01) | DRG 885 ==
LOC: EMS 12:02 → 3EX 08-31 00:01
PROVIDERS: ADMIT Psychiatry & Neurology Psychiatry; ATTEND Psychiatry & Neurology Psychiatry
DX: F31.4 Bipolar disorder, current episode depressed, severe, without psychotic features (principal); F10.229 Alcohol dependence with intoxication, unspecified; R45.851 Suicidal ideations; F10.239 Alcohol dependence with withdrawal, unspecified; E87.0 Hyperosmolality and hypernatremia; I10 Essential (primary) hypertension; F20.9 Schizophrenia, unspecified; E78.5 Hyperlipidemia, unspecified; F15.90 Other stimulant use, unspecified, uncomplicated; F41.9 Anxiety disorder, unspecified; Y90.8 Blood alcohol level of 240 mg/100 ml or more; M25.571 Pain in right ankle and joints of right foot; F17.210 Nicotine dependence, cigarettes, uncomplicated; D64.9 Anemia, unspecified; Z20.822 Contact with and (suspected) exposure to COVID-19; Z88.8 Allergy status to other drugs, medicaments and biological substances; Z79.899 Other long term (current) drug therapy; Z78.1 Physical restraint status; Z28.21 Immunization not carried out because of patient refusal
CPT/HCPCS: 80053; 81003; 85025; 87081; 97162; 99291; G0378; G0480; J1200; J2060